=== PATIENT | male | born 1990 | race Caucasian/White ===

== ENCOUNTER 2020-10-13 16:51 | Emergency (ER) | payer MEDICARE, MEDICAID, SELFPAY ==
[2020-10-13 17:00] VITALS: BP 117/76; PULSE 106; RESP 18; TEMP 36.4; O2SAT 95; BMI 49.9
[2020-10-13 18:03] LABS: Amphetamine Screen Urine Not Detected (Not Detect); Barbiturates, Urine Not Detected (Not Detect); Benzodiazepines Screen Urine Not Detected (Not Detect); Cannabinoid Screen Urine Not Detected (Not Detect); Cocaine Screen Urine Not Detected (Not Detect); Fentanyl, urine Not Detected (Not Detect); Opiate Screen Urine Not Detected (Not Detect); Phencyclidine Screen Urine Not Detected (Not Detect)
[2020-10-13 18:11] LABS: MANUAL DIFF FLAG NO
[2020-10-13 18:12] LABS: COVID-19 Test Negative (Negative); IDNOW Serial# 9DD0AD1C
[2020-10-13 18:16] LABS: Basophils Percent Auto 0.1 % (0-2); Eosinophils Absolute Auto 0.1 X10*3/uL (0.0-0.4); Eosinophils Percent Auto 0.7 % (0-4); Hematocrit 42.6 % (42-52); Hemoglobin 14.7 g/dl (14.0-18.0); Imm Gran Abs Auto 0.04 X10*3/uL (0.00-0.03); Imm Gran Pct Auto 0.4 % (0.0-0.4); Lymphocytes Absolute Auto 1.7 X10*3/uL (1.2-4.9); Lymphocytes Percent Auto 18.7 % (20-40); Mean Corpuscular HGB Conc 34.5 g/dl (31.0-36.0); Mean Corpuscular Hemoglobin 30.3 pg (27.0-33.0); Mean Corpuscular Volume 87.8 fL (80-98); Mean Platelet Volume 10.8 fL (9.4-12.4); Monocytes Absolute Auto 0.7 X10*3/uL (0.1-1.2); Monocytes Percent Auto 8.3 % (2-11); Neutrophils Absolute Auto 6.4 X10*3/uL (2.0-8.3); Neutrophils Percent Auto 71.8 % (45-73); Platelet Count 181 X10*3/uL (160-400); Red Blood Count 4.85 X10*6/uL (4.60-5.80); Red Cell Distribution Width 12.3 % (11.0-16.0); White Blood Count 8.9 X10*3/uL (4.8-10.8)
[2020-10-13 18:41] LABS: Alanine Aminotransferase 95 U/L (0-40); Albumin Level 4.2 g/dL (3.5-5.0); Alkaline Phosphatase 85 U/L (39-117); Anion Gap 13 (12-20); Aspartate Amino Transferase 35 U/L (5-37); Bilirubin Direct < 0.2 mg/dL (0.0-0.5); Bilirubin Total 0.3 mg/dL (0.0-1.0); Blood Urea Nitrogen 16 mg/dL (9-16); Calcium 9.3 mg/dL (8.4-10.2); Carbon Dioxide 25 mmol/L (22-29); Chloride 107 mmol/L (96-108); Creatinine Clr Calc Pharmacy 136.7; Estimated Glomerular Filt Rate > 60; Glucose Random 93 mg/dL (60-115); Potassium 4.4 mmol/L (3.3-5.1); Sodium 141 mmol/L (135-145); Total Protein 7.3 g/dL (6.5-8.0)
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
[2020-10-13] MEDS: OXcarbazepine 150 MG TABLET PO (22:19)
[2020-10-13] MEDS: Divalproex Sodium ER 500 MG TAB.ER.24H 1000 MG PO (22:19)
[2020-10-13] MEDS: Omeprazole 40 MG CAPSULE.DR PO (22:20)
[2020-10-13] MEDS: NeoMYCIN/Polymyxin/HC Otic Sol BOTTLE 4 DROP EAR-LEFT (22:20)
[2020-10-13] MEDS: Amoxicillin/Potassium Clav 875 MG TABLET PO (22:20)
[2020-10-13] MEDS: HaloperidoL 5 MG TABLET 15 MG PO (22:20)
[2020-10-14] MEDS: Acetaminophen 325 MG TABLET 650 MG PO (01:46)
--- NOTE | 2020-10-14 06:31 | PC.NURSE ---
Patient slept through the night, no distress observed/reported, VSS, behavior appropriate, patient is on ABT treatment for his left ear infection, [facility] referral completed/awaiting evaluation AM, appetite good, will continue to monitor.
[2020-10-14 06:34] VITALS: BP 128/76; PULSE 88; RESP 16; TEMP 36.8; O2SAT 94
[2020-10-14] MEDS: Omeprazole 40 MG CAPSULE.DR PO (06:41)
[2020-10-14] MEDS: NeoMYCIN/Polymyxin/HC Otic Sol BOTTLE 4 DROP EAR-LEFT ×2 (06:41→13:33)
[2020-10-14] MEDS: Amoxicillin/Potassium Clav 875 MG TABLET PO (08:08)
[2020-10-14] MEDS: Levothyroxine Sodium 100 MCG TABLET PO (08:08)
[2020-10-14] MEDS: OXcarbazepine 150 MG TABLET PO (08:09)
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
--- NOTE | 2020-10-14 13:19 | PC.NURSE ---
pt has been calm, cooperative. HE states he is aware he will be returning to his [facility] and agrees to returning there. HE has had lunch and has been in common area with staff, behavior appropriate.
--- NOTE | 2020-10-14 13:21 | MHC.CARE ---
Call to patient's [facility] staffIzabela about patient's transportation home. They can arrange a ride 2:30-3:00
[2020-10-18 18:21] LABS: Haloperidol 2 ng/mL (5-15)
== END 2020-10-14 15:50 | disposition home or self-care (01) ==
PROVIDERS: Physician Assistant; Emergency Provider Emergency Medicine Emergency Medical Services
DX: R45.851 Suicidal ideations (principal); F98.9 Unspecified behavioral and emotional disorders with onset usually occurring in childhood and adolescence; Z20.822 Contact with and (suspected) exposure to COVID-19; R45.850 Homicidal ideations; F41.9 Anxiety disorder, unspecified; F71 Moderate intellectual disabilities; F31.9 Bipolar disorder, unspecified; F43.10 Post-traumatic stress disorder, unspecified; R00.0 Tachycardia, unspecified; Z79.899 Other long term (current) drug therapy
CPT/HCPCS: 36415; 80048; 80076; 80173; 80307; 83735; 85025; 87635; 99285

== ENCOUNTER 2020-10-16 18:48 | Inpatient (IN) | payer MEDICARE, MEDICAID, SELFPAY ==
--- NOTE | ~2020-10-16 | US_ITS ---
EXAMINATION: US ABDOMEN COMPLETE CLINICAL INFORMATION: Abdominal pain. COMPARISON: None TECHNIQUE: Real-time imaging of the abdominal viscera. FINDINGS: PANCREAS: Obscured by overlying bowel gas. ABDOMINAL AORTA: The proximal, mid, and distal segments are normal in caliber. INFERIOR VENA CAVA: Visualized portions are normal. LIVER: There is diffusely increased echogenicity present with difficulty in sound shadowing consistent with fatty infiltration. No focal mass or intrahepatic bile duct dilatation is seen. The liver is normal in size. The liver contour is normal. GALLBLADDER: Not visualized. No tenderness to palpation in the right upper quadrant. COMMON BILE DUCT: Not identified. RIGHT KIDNEY: Normal. No hydronephrosis. No renal calculi or focal parenchymal lesions. The kidney measures 11.8 cm in maximum dimension. LEFT KIDNEY: Normal. No hydronephrosis. No renal calculi or focal parenchymal lesions. The kidney measures 11.5 cm in maximum dimension. SPLEEN: Splenomegaly present. The spleen measures 13.7 cm in maximum dimension. FREE FLUID: None. US/US abdomen complete IMPRESSION: Limited study with findings consistent with fatty infiltration of the liver and splenomegaly. Pancreas obscured by overlying bowel gas and gallbladder not identified.
--- NOTE | ~2020-10-16 | XR_ITS ---
EXAMINATION: XR ABDOMEN KUB CLINICAL INDICATION: Pain. Constipation. COMPARISON: None TECHNIQUE: AP view of the abdomen. FINDINGS: There is stool throughout the colon suggestive of constipation. No dilated loops of bowel to suggest obstruction. No calcifications. There are mild degenerative changes of the lower thoracic and upper lumbar spine. XR/XR KUB IMPRESSION: Constipation.
--- NOTE | ~2020-10-16 | XR_ITS ---
EXAMINATION: XR CHEST CLINICAL INFORMATION: Congestion. COMPARISON: None TECHNIQUE: 2 views of the chest were obtained. FINDINGS: No significant abnormality is noted involving the heart, lungs, mediastinum, bony thorax or soft tissues. XR/XR chest 2V IMPRESSION: Unremarkable examination.
--- NOTE | ~2020-10-16 | XR_ITS ---
EXAMINATION: XR ANKLE, LEFT CLINICAL INFORMATION: Patient having pain. Reports he twisted his ankle. COMPARISON: None TECHNIQUE: AP, lateral, and mortise views of the left ankle. FINDINGS: No fracture. No dislocation. No widening of the ankle mortise. There is soft tissue swelling medial greater than lateral. XR/XR ankle LT 2V IMPRESSION: No acute osseous abnormality. Medial greater than lateral soft tissue swelling.
[2020-10-16 19:00] VITALS: BP 126/84; PULSE 100; O2SAT 98
[2020-10-16 19:23] VITALS: BP 152/98; PULSE 97; RESP 20; TEMP 36.2; O2SAT 97
[2020-10-16 19:28] VITALS: BP 152/98; PULSE 97; RESP 18; TEMP 36.2; O2SAT 97; BMI 63.2
[2020-10-16 21:44] LABS: Ethanol < 10 mg/dL
--- NOTE | 2020-10-16 22:41 | PC.NURSE ---
provider dr de la torre in seeing the pt at this time.
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
[2020-10-16 23:44] VITALS: BP 158/106; PULSE 87; RESP 18; TEMP 36.6; O2SAT 95
[2020-10-17 00:10] LABS: Amphetamine Screen Urine Not Detected (Not Detect); Barbiturates, Urine Not Detected (Not Detect); Benzodiazepines Screen Urine Not Detected (Not Detect); Cannabinoid Screen Urine Not Detected (Not Detect); Cocaine Screen Urine Not Detected (Not Detect); Fentanyl, urine Not Detected (Not Detect); Opiate Screen Urine Not Detected (Not Detect); Phencyclidine Screen Urine Not Detected (Not Detect)
--- NOTE | 2020-10-17 00:44 | PC.NURSE ---
BHN referral completed via smart-sheet, confirmed by KJ Petersen overnight pharmacy operations specialist, patient is in room watching TV calm and quiet, no distress observed/reported, will continue to monitor.
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
--- NOTE | 2020-10-17 06:12 | PC.NURSE ---
Patient slept through the night, no distress observed/reported, patient was out of room for bathroom use x 1 and back, med rec completed awaiting provider's approval, Antibiotic dose needs to be verified with senior living, called and message was left to group to call us and update on patient's abt dose. behavior appropriate, VSS, appetite good, hydrating adequate, BHN referral was completed/confirmed, awaiting BHN evaluation in AM, will continue to monitor.
[2020-10-17 06:52] LABS: IDNOW Serial# 9DD0AD1C
[2020-10-17 06:53] LABS: COVID-19 Test Negative (Negative)
--- NOTE | 2020-10-17 07:38 | PC.NURSE ---
pt speaking w tyron in pt room att, pt calm and cooperative throughout morning w this rn.
[2020-10-17] MEDS: NeoMYCIN/Polymyxin/HC Otic Sol BOTTLE 4 DROP EAR-LEFT ×2 (09:18→16:55)
[2020-10-17] MEDS: Amoxicillin/Potassium Clav 875 MG TABLET PO ×2 (09:18→20:40)
[2020-10-17] MEDS: Omeprazole 40 MG CAPSULE.DR PO ×2 (09:18→16:55)
[2020-10-17] MEDS: OXcarbazepine 150 MG TABLET PO ×2 (09:18→20:40)
[2020-10-17] MEDS: Levothyroxine Sodium 100 MCG TABLET PO (09:18)
[2020-10-17] MEDS: Acetaminophen 325 MG TABLET 975 MG PO (10:32)
--- NOTE | 2020-10-17 10:33 | PC.NURSE ---
Pt medicated with tylenol as charted for left ear pain.
[2020-10-17] MEDS: Ibuprofen 800 MG TABLET PO ×2 (11:46→16:56)
--- NOTE | 2020-10-17 11:48 | PC.NURSE ---
Pt medicated with motrin as charted for continued ear pain of 5/10. Effects pending.
--- NOTE | 2020-10-17 15:21 | PC.NURSE ---
Report recieved. Pt standing at the nurses station, quiet, calm, and cooperative. No complaints at this time. Continues to be a section 12 bed search
[2020-10-17 15:36] VITALS: BP 136/91; PULSE 92; RESP 18; TEMP 36; O2SAT 96
--- NOTE | 2020-10-17 17:10 | PC.NURSE ---
Pt medicated with motrin for 10/10 L ear pain, charted in mar
--- NOTE | 2020-10-17 20:19 | PC.NURSE ---
PT AMBULATING ABOUT POD WITH EVEN STEADY GAIT. RR EVEN UNLABORED, SKIN WPD, NAD, PT OFFERS NO ACUTE COMPLAINTS. EATING AND DRINKING WITHOUT DIFFICULTY. PT AWARE/AGREEABLE TO PLAN OF CARE.
[2020-10-17] MEDS: HaloperidoL 5 MG TABLET 15 MG PO (20:40)
[2020-10-17] MEDS: Divalproex Sodium ER 500 MG TAB.ER.24H 1000 MG PO (20:40)
[2020-10-18 00:21] VITALS: BP 141/83; PULSE 92; RESP 18; TEMP 36.4; O2SAT 96
--- NOTE | 2020-10-18 01:35 | PC.NURSE ---
pt is sleeping at this time . no sign of distress.
[2020-10-18] MEDS: Levothyroxine Sodium 100 MCG TABLET PO (06:52)
[2020-10-18] MEDS: Omeprazole 40 MG CAPSULE.DR PO ×2 (06:52→14:55)
[2020-10-18] MEDS: OXcarbazepine 150 MG TABLET PO ×2 (08:24→20:03)
[2020-10-18] MEDS: Amoxicillin/Potassium Clav 875 MG TABLET PO ×2 (08:24→20:03)
[2020-10-18] MEDS: NeoMYCIN/Polymyxin/HC Otic Sol BOTTLE 4 DROP EAR-LEFT ×2 (08:24→17:05)
--- NOTE | 2020-10-18 10:23 | PC.NURSE ---
BHN at bedside
[2020-10-18 10:26] VITALS: BP 137/91; PULSE 98; RESP 18; TEMP 37.2; O2SAT 98
[2020-10-18] MEDS: Ibuprofen 800 MG TABLET PO (14:56)
[2020-10-18] MEDS: LORazepam 1 MG TABLET 2 MG PO (15:12)
--- NOTE | 2020-10-18 15:29 | PC.NURSE ---
pt states increasing anxiety, DELPHINE Boone made aware and 1X po Ativan ordered and given
[2020-10-18 17:56] VITALS: BP 129/84; PULSE 101; RESP 18; TEMP 36.7; O2SAT 97
[2020-10-18] MEDS: Acetaminophen 325 MG TABLET 975 MG PO (18:20)
--- NOTE | 2020-10-18 19:25 | PC.NURSE ---
Pt aaox4, standing in pod outside of nurses' station. Pt denies pain/discomfort. At this time, pt does not appear to be responding to internal stimuli. Pt aware and agreeable to nighttime medications. Pt without complaints.
[2020-10-18] MEDS: HaloperidoL 5 MG TABLET 15 MG PO (20:03)
[2020-10-18] MEDS: Divalproex Sodium ER 500 MG TAB.ER.24H 1000 MG PO (20:03)
[2020-10-19 02:06] VITALS: BP 122/69; PULSE 97; RESP 17; TEMP 36.6; O2SAT 96
--- NOTE | 2020-10-19 06:13 | PC.NURSE ---
Patient slept through the night, no distress observed/reported, medication compliant, behavior appropriate, VSS, appetite good, elimination intact, disposition per [facility] is section 12 inpatient bed search, will continue to monitor.
[2020-10-19] MEDS: Levothyroxine Sodium 100 MCG TABLET PO (07:08)
[2020-10-19] MEDS: Omeprazole 40 MG CAPSULE.DR PO ×2 (07:08→16:08)
[2020-10-19 07:56] VITALS: BP 119/79; PULSE 100; RESP 18; TEMP 36.2; O2SAT 95
[2020-10-19] MEDS: OXcarbazepine 150 MG TABLET PO ×2 (08:04→20:27)
[2020-10-19] MEDS: NeoMYCIN/Polymyxin/HC Otic Sol BOTTLE 4 DROP EAR-LEFT ×3 (08:04→20:28)
[2020-10-19] MEDS: Amoxicillin/Potassium Clav 875 MG TABLET PO ×2 (08:04→20:27)
--- NOTE | 2020-10-19 11:11 | PC.NURSE ---
[facility] phone number is [phone] for questions.
[2020-10-19] MEDS: LORazepam 1 MG TABLET 2 MG PO ×2 (12:22→20:27)
[2020-10-19] MEDS: OLANZapine 5 MG TABLET PO (16:08)
[2020-10-19 18:45] VITALS: BP 135/85; PULSE 129; RESP 17; TEMP 36.3; O2SAT 96
[2020-10-19] MEDS: HaloperidoL 5 MG TABLET 15 MG PO (20:26)
[2020-10-19] MEDS: polyethylene glycoL 3350 17 GM POWD.PACK PO (20:26)
[2020-10-19] MEDS: Divalproex Sodium ER 500 MG TAB.ER.24H 1000 MG PO (20:26)
[2020-10-20] MEDS: Levothyroxine Sodium 100 MCG TABLET PO (06:20)
[2020-10-20] MEDS: Omeprazole 40 MG CAPSULE.DR PO ×2 (06:20→16:36)
[2020-10-20 06:35] VITALS: BP 112/67; PULSE 96; RESP 18; TEMP 36.9; O2SAT 95
--- NOTE | 2020-10-20 07:19 | PC.NURSE ---
patient appears in no distress at present patient remains asleep respirations are even and unlabored
[2020-10-20] MEDS: Amoxicillin/Potassium Clav 875 MG TABLET PO ×2 (10:02→20:38)
[2020-10-20] MEDS: NeoMYCIN/Polymyxin/HC Otic Sol BOTTLE 4 DROP EAR-LEFT ×3 (10:03→20:42)
[2020-10-20] MEDS: OXcarbazepine 150 MG TABLET PO ×2 (10:03→20:38)
[2020-10-20 16:50] VITALS: BP 136/52; PULSE 102; RESP 18; TEMP 36.2; O2SAT 95
--- NOTE | 2020-10-20 17:27 | PC.NURSE ---
pat called [facility] [employer] [employer] [facility] nurse and expressed frustration with not being placed, t/w spoke to nurse and reviewed client status. patient also asked who he could speak to about problems and i told him i would relay information to inside sales supervisor if he/she rounds.
[2020-10-20] MEDS: LORazepam 1 MG TABLET 2 MG PO (20:38)
[2020-10-20] MEDS: HaloperidoL 5 MG TABLET 15 MG PO (20:39)
[2020-10-20] MEDS: Divalproex Sodium ER 500 MG TAB.ER.24H 1000 MG PO (20:39)
--- NOTE | 2020-10-20 23:05 | PC.NURSE ---
Patient upset over being to long here in POD, explained the process, calmed down, took his all nighttime meds with his PRN Ativan 2 mg, VSS, will continue to monitor.
[2020-10-20 23:17] VITALS: BP 119/72; PULSE 112; RESP 17; TEMP 36.8; O2SAT 95
--- NOTE | 2020-10-21 05:52 | PC.NURSE ---
Patient in bed appears sleeping, no distress observed/reported, patient got fully reassessed by BHN during overnight, disposition is same, section 12 inpatient bed search, per report longterm doesn't want patient back and patient doesn't want to go back to longterm, care team involved for patient advocacy will reach out to DDS worker today to discuss patient's situation, patient compliant with his medication, behavior appropriate mostly but may trigger if patient has to stay longer in the ED POD, appetite good, elimination intact, will continue to monitor.
[2020-10-21] MEDS: Levothyroxine Sodium 100 MCG TABLET PO (06:46)
[2020-10-21] MEDS: Omeprazole 40 MG CAPSULE.DR PO ×2 (06:46→15:54)
--- NOTE | 2020-10-21 07:04 | PC.NURSE ---
patient awake and alert upon t/w's arrival client's awake, making bed, tv audibly playing patient attends to adl's appears in no distress
[2020-10-21] MEDS: NeoMYCIN/Polymyxin/HC Otic Sol BOTTLE 4 DROP EAR-LEFT ×3 (08:03→21:38)
[2020-10-21] MEDS: Amoxicillin/Potassium Clav 875 MG TABLET PO ×2 (08:03→20:28)
[2020-10-21] MEDS: OXcarbazepine 150 MG TABLET PO ×2 (08:03→20:29)
[2020-10-21 08:05] VITALS: BP 111/75; PULSE 99; TEMP 35.1; O2SAT 96
--- NOTE | 2020-10-21 13:30 | MHC.CARE ---
Lengthy call with Izabela (YANIV RN) [phone] regarding patient's disposition and plans for post discharge. She reiterated that they are fully committed to caring for patient after he leaving the hospital, worst case he could go to a local respite and best case a different jail and ideally return to [facility] where he was living previously--all of these are being worked on concurrently. Izabela knows patient well and has observations about his behavior and hopes to speak to providers wherever he goes about medication, she noted that he hears voices and becomes dysregulated around 5 pm, wonders if doses can be split.
--- NOTE | 2020-10-21 15:31 | PC.NURSE ---
Ear drops admin to left ear per MAR. Pt present within the milieu, needing occasional redirection from nurses station, educated there is private patient information at the nurses station.
[2020-10-21 18:30] VITALS: BP 140/85; PULSE 103; RESP 16; TEMP 36.5; O2SAT 97
--- NOTE | 2020-10-21 19:18 | PC.NURSE ---
PT arrives on the until at 18:30 via wheelchair from the ED after signing CV paperwork. PT is a 30 year old male with a diagnosis of bipolar disorder that attempted suicide by way of consuming edible berries. PT resides in a usp where this occurred. PT is calm and cooperative throughout the admission process. A&O x 4 PT is currently feeling safe on the unit and expresses desire to get better. PT is denying any SI/HI and AH/VH at this time but does state he occasionally does have AH that instruct him to hurt himself. PT oriented to unit.
[2020-10-21 19:23] LABS: Valproate 24.8 mcg/mL (50.0-100.0)
[2020-10-21] MEDS: Ibuprofen 800 MG TABLET PO (20:28)
[2020-10-21] MEDS: Divalproex Sodium ER 500 MG TAB.ER.24H 1000 MG PO (20:29)
[2020-10-21] MEDS: HaloperidoL 5 MG TABLET 15 MG PO (20:29)
[2020-10-22 06:00] VITALS: BP 106/60; PULSE 95; RESP 16; TEMP 35.8; O2SAT 94
[2020-10-22] MEDS: Omeprazole 40 MG CAPSULE.DR PO ×2 (06:27→17:45)
[2020-10-22] MEDS: Levothyroxine Sodium 100 MCG TABLET PO (06:27)
[2020-10-22 08:18] LABS: MANUAL DIFF FLAG NO
[2020-10-22 08:22] LABS: Eosinophils Absolute Auto 0.1 X10*3/uL (0.0-0.4); Eosinophils Percent Auto 1.2 % (0-4); Hematocrit 41.8 % (42-52); Hemoglobin 14.2 g/dl (14.0-18.0); Imm Gran Abs Auto 0.02 X10*3/uL (0.00-0.03); Imm Gran Pct Auto 0.4 % (0.0-0.4); Lymphocytes Absolute Auto 2.1 X10*3/uL (1.2-4.9); Lymphocytes Percent Auto 42.1 % (20-40); Mean Corpuscular Volume 88.4 fL (80-98); Mean Platelet Volume 10.7 fL (9.4-12.4); Monocytes Absolute Auto 0.4 X10*3/uL (0.1-1.2); Monocytes Percent Auto 8.1 % (2-11); Neutrophils Absolute Auto 2.4 X10*3/uL (2.0-8.3); Neutrophils Percent Auto 48.2 % (45-73); Platelet Count 165 X10*3/uL (160-400); Red Blood Count 4.73 X10*6/uL (4.60-5.80); Red Cell Distribution Width 12.6 % (11.0-16.0)
[2020-10-22 08:52] LABS: Estimated Average Glucose 94 mg/dL; Hemoglobin A1C 111.3782 umol/L; Hemoglobin A1c % 4.9 %
--- NOTE | 2020-10-22 09:00 | ECG_ITS ---
Test Reason : HALDOL USE/QTC PROLO Blood Pressure : / mmHG Vent. Rate : 097 BPM Atrial Rate : 097 BPM P-R Int : 160 ms QRS Dur : 092 ms QT Int : 344 ms P-R-T Axes : 010 -03 022 degrees QTc Int : 436 ms Normal sinus rhythm Minimal voltage criteria for LVH, may be normal variant Borderline ECG No previous ECGs available Referred By: Alyssa Carbajal Electronically Signed By:CODY COOPER
[2020-10-22] MEDS: Amoxicillin/Potassium Clav 875 MG TABLET PO (09:41)
[2020-10-22] MEDS: NeoMYCIN/Polymyxin/HC Otic Sol BOTTLE 4 DROP EAR-LEFT ×2 (09:41→20:33)
[2020-10-22] MEDS: OXcarbazepine 150 MG TABLET PO ×2 (09:41→20:32)
[2020-10-22 09:46] LABS: Free T4 (Free Thyroxine) 1.26 ng/dL (0.71-1.85); Thyroid Stimulating Hormone 2.61 uIU/mL (0.32-4.0)
[2020-10-22 09:47] LABS: Alanine Aminotransferase 128 U/L (0-40); Albumin Level 3.9 g/dL (3.5-5.0); Alkaline Phosphatase 79 U/L (39-117); Anion Gap 11 (12-20); Aspartate Amino Transferase 44 U/L (5-37); Bilirubin Total 0.3 mg/dL (0.0-1.0); Blood Urea Nitrogen 17 mg/dL (9-16); Calcium 8.9 mg/dL (8.4-10.2); Carbon Dioxide 29 mmol/L (22-29); Chloride 105 mmol/L (96-108); Cholesterol 129 mg/dL; Creatinine Clr Calc Pharmacy 204.6; Estimated Glomerular Filt Rate > 60; Glucose Fasting 91 mg/dL (60-99); HDL Cholesterol 38 mg/dL; LDL Cholesterol Calculated 64 mg/dl; Magnesium 2.1 mg/dL (1.6-2.6); Potassium 4.4 mmol/L (3.3-5.1); Sodium 141 mmol/L (135-145); Total Protein 6.5 g/dL (6.5-8.0); Triglycerides 138 mg/dL
[2020-10-22 09:57] LABS: Folate 14.3 ng/mL (> or = 4.0); Vitamin B12 411 pg/mL (200-900)
[2020-10-22 13:50] VITALS: BP 143/89; PULSE 111; TEMP 36; O2SAT 96
--- NOTE | 2020-10-22 17:03 | P.CNHOSGPS_ITS ---
History of Present Illness Data of Consult Service Date: 10/22/20 Requesting physician: Alyssa Carbajal Primary Care Provider: Unknown Physician HPI Reason for consult: Abdominal pain This is a 30-year-old male who denies any past medical history currently admitted to for psychiatric care. The hospitalists were asked to see him in consultation due to abdominal pain. Patient reports left-sided abdominal pain with no radiation. The onset of the pain was yesterday afternoon and has been constant. The pain reportedly worsens with eating meals. The pain does not change with position. Patient denies any recent trauma. He has never had this abdominal pain before. He denies any recent takeout food, recent travel. He denies any associated nausea or vomiting but does report 3 episodes of diarrhea in the past 3 days. Review of Systems Review of Systems: Yes all other systems are reviewed and are negative Constitutional: Constitutional: Denies chills and Denies fever(s) Cardiovascular: Cardiovascular: Denies chest pain Respiratory: Respiratory: Denies cough Gastrointestinal: Gastrointestinal: Denies constipation, Denies heartburn, Reports diarrhea, Denies nausea and Denies vomiting Genitourinary: Genitourinary: Denies oliguria, Denies dysuria, Denies urinary hesitancy, Denies urinary incontinence and Denies urinary urgency [facility] Medical History No known health problems Functional capacity: independent ambulation Family history: reviewed and not pertinent Social History Household Members: Other Housing: Other Do you presently have visiting nurse or other home services: No Patient Tobacco Use Status: Never used Tobacco e-Cigarette/Vaping Use: Never Used Use of substances other than those prescribed or required for medical reasons: No Currently Displaying Signs/Symptoms of Drug Intoxication Withdrawal: No Have you been hit, kicked, punched, or otherwise hurt by someone within the past year? If so, by whom?: No Do you feel safe in your current relationship?: No Is there a partner from a previous relationship who is making you feel unsafe now?: No Are you made to feel afraid or neglected: No Confucianism Healthcare Practices: Restorationism Advance Directives: No Advance Directives Information Provided: No Do you have thoughts of harming others: None Do you have a plan to hurt others: No Plan Recently lost weight without trying: No Nutrition Risks: No Nutritional Risk Poor oral hygiene: No service: No Sexual orientation: Straight/Heterosexual Meds Allergies Allergy/AdvReac Type Severity Reaction Status Date / Time Penicillins Allergy Hives Verified 10/13/20 17:15 fluoxetine [From Prozac] AdvReac Unknown Verified 10/13/20 17:15 Active Medications: Current Medications Generic Name Dose Route Start Last Admin Trade Name Freq PRN Reason Stop Dose Admin Acetaminophen 975 mg 10/17/20 10:28 10/18/20 18:20 Acetaminophen 325 Mg Tablet PO 975 mg Q6H PRN Administration pain Al Hydroxide/Mg Hydroxide 30 ml 10/21/20 17:40 Magnesium Hydrox/Alum Hydrox 30 Ml Oral.Susp PO Q6H PRN Heartburn/Nausea Amoxicillin/Clavulanate Potassium 875 mg 10/17/20 09:00 10/22/20 09:41 Amoxicillin/Potassium Clav 875 Mg Tablet PO 875 mg BID RYAN Administration Divalproex Sodium 1,000 mg 10/17/20 21:00 10/21/20 20:29 Divalproex Sodium Er 500 Mg Tab.Er.24h PO 1,000 mg BEDTIME RYAN Administration Haloperidol 15 mg 10/17/20 21:00 10/21/20 20:29 Haloperidol 5 Mg Tablet PO 15 mg BEDTIME RYAN Administration Haloperidol 5 mg 10/21/20 18:13 Haloperidol 5 Mg Tablet PO BID PRN psychotic agitation Ibuprofen 800 mg 10/17/20 11:17 10/21/20 20:28 Ibuprofen 800 Mg Tablet PO 800 mg Q6H PRN Administration pain Levothyroxine Sodium 100 mcg 10/17/20 09:00 10/22/20 06:27 Levothyroxine Sodium 100 Mcg Tablet PO 100 mcg DAILY@0600 RYAN Administration Lorazepam 2 mg 10/20/20 18:20 10/20/20 20:38 Lorazepam 1 Mg Tablet PO 2 mg DAILY PRN Administration anxiety Magnesium Hydroxide 30 ml 10/21/20 17:40 Milk Of Magnesia 30 Ml Oral.Susp PO DAILY PRN Constipation Neomycin/Polymyxin/Hydrocortisone 4 drop 10/19/20 09:00 10/22/20 09:41 Neomycin/Polymyxin/Hc Otic Marisabel Bottle EAR-LEFT 4 drop TID RYAN Administration Omeprazole 40 mg 10/17/20 09:00 10/22/20 06:27 Omeprazole 40 Mg Capsule. PO 40 mg BID@0630,1630 RYAN Administration Oxcarbazepine 150 mg 10/17/20 09:00 10/22/20 09:41 Oxcarbazepine 150 Mg Tablet PO 150 mg BID RYAN Administration Trazodone HCl 50 mg 10/21/20 17:40 Trazodone Hcl 50 Mg Tablet PO BEDTIME PRN Insomnia Home Medications Medication Instructions Recorded Confirmed Last Taken Type divalproex 500 mg tablet,extended 2 tab PO BEDTIME 10/13/20 10/17/20 10/15/20 History release 24 hr haloperidol 10 mg tablet 15 mg PO BEDTIME 10/13/20 10/17/20 10/15/20 History levothyroxine 100 mcg tablet 1 tab PO DAILY 10/13/20 10/17/20 10/15/20 History omeprazole 40 mg capsule,delayed 1 cap PO BID 10/13/20 10/17/20 10/15/20 History release oxcarbazepine 150 mg tablet 1 tab PO BID 10/13/20 10/17/20 10/16/20 History 1 Results Labs CBC and Chem 7: 10/22/20 08:08 10/22/20 08:08 Labs: Laboratory Results - last 24 hr 10/21/20 10/22/20 10/22/20 18:46 08:08 08:08 MCV 88.4 MCH 30.0 MCHC 34.0 RDW 12.6 Plt Count 165 MPV 10.7 Immature Gran % (Auto) 0.4 Neut % (Auto) 48.2 Lymph % (Auto) 42.1 H [place] % (Auto) 8.1 Eos % (Auto) 1.2 Baso % (Auto) 0.0 Lymph # (Auto) 2.1 [place] # (Auto) 0.4 Eos # (Auto) 0.1 Baso # (Auto) 0.0 Abs Immat Gran (auto) 0.02 Absolute Neuts (auto) 2.4 Absolute Nucleated RBC 0.000 Nucleated RBC % (auto) 0.0 Anion Gap 11 L Estim Creat Clear Calc 204.6 Estimated GFR > 60 Fasting Glucose 91 Estimat Average Glucose Hemoglobin A1c % Calcium 8.9 Magnesium 2.1 Total Bilirubin 0.3 AST 44 H ALT 128 H Alkaline Phosphatase 79 Total Protein 6.5 Albumin 3.9 Triglycerides 138 Cholesterol 129 LDL Cholesterol, Calc 64 HDL Cholesterol 38 Vitamin B12 Folate TSH 2.61 Free T4 1.26 Valproic Acid 24.8 L 10/22/20 10/22/20 08:08 08:08 MCV MCH MCHC RDW Plt Count MPV Immature Gran % (Auto) Neut % (Auto) Lymph % (Auto) [place] % (Auto) Eos % (Auto) Baso % (Auto) Lymph # (Auto) [place] # (Auto) Eos # (Auto) Baso # (Auto) Abs Immat Gran (auto) Absolute Neuts (auto) Absolute Nucleated RBC Nucleated RBC % (auto) Anion Gap Estim Creat Clear Calc Estimated GFR Fasting Glucose Estimat Average Glucose 94 Hemoglobin A1c % 4.9 Calcium Magnesium Total Bilirubin AST ALT Alkaline Phosphatase Total Protein Albumin Triglycerides Cholesterol LDL Cholesterol, Calc HDL Cholesterol Vitamin B12 411 Folate 14.3 TSH Free T4 Valproic Acid Imaging Radiologist's Impressions: Impressions Chest X-Ray 10/22/20 15:57 IMPRESSION: Unremarkable examination. Abdomen Ultrasound 10/22/20 16:10 IMPRESSION: Limited study with findings consistent with fatty infiltration of the liver and splenomegaly. Pancreas obscured by overlying bowel gas and gallbladder not identified. Assessment and Plan (1) Abdominal pain: Status: Acute This is a 30 year old male with no significant past medical history admitted to now with complaints of abdominal pain Abdominal pain Has had a few episodes of associated diarrhea Has been on Augmentin for ?ear infection since ?10/08 Afebrile, no leukocytosis. 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 Lovelace Physical Exam Vital Signs: Last Vital Signs Temp 96.8 F 10/22/20 13:50 Pulse 111 H 10/22/20 13:50 Resp 16 10/22/20 06:00 BP 143/89 H 10/22/20 13:50 Pulse Ox 96 10/22/20 13:50 Body Mass Index 63.2 Const General: comfortable, no acute distress, alert and awake Nutritional Appearance: obese Orientation/consciousness: patient oriented x3 HENMT Head: Yes normocephalic and Yes atraumatic Eyes Sclerae: sclerae normal Resp Effort & Inspection: normal respiratory effort and no respiratory distress Cardio Rate: regular rate Rhythm: regular rhythm GI Other: soft, non-distended, tender to palpation left side, no rebound Neuro General: patient oriented x3 Cranial nerves: Yes CN's II-XII intact bilaterally and Yes Bilaterally intact EOM present
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
[2020-10-22] MEDS: LORazepam 1 MG TABLET 2 MG PO (18:31)
[2020-10-22] MEDS: HaloperidoL 5 MG TABLET 15 MG PO (20:32)
[2020-10-22] MEDS: Divalproex Sodium ER 500 MG TAB.ER.24H 1000 MG PO (20:32)
[2020-10-23] MEDS: Levothyroxine Sodium 100 MCG TABLET PO (07:16)
[2020-10-23] MEDS: Omeprazole 40 MG CAPSULE.DR PO ×2 (07:17→15:58)
[2020-10-23] MEDS: OXcarbazepine 150 MG TABLET PO ×3 (09:40→20:27)
[2020-10-23] MEDS: NeoMYCIN/Polymyxin/HC Otic Sol BOTTLE 4 DROP EAR-LEFT ×3 (09:40→20:33)
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
[2020-10-23] MEDS: OXcarbazepine 300 MG TABLET PO (15:58)
[2020-10-23] MEDS: HaloperidoL 5 MG TABLET PO (15:58)
[2020-10-23 17:04] VITALS: BP 135/82; PULSE 122; RESP 18; TEMP 36.1; O2SAT 96
[2020-10-23] MEDS: LORazepam 1 MG TABLET 2 MG PO (17:14)
[2020-10-23] MEDS: Lurasidone HCl 20 MG TABLET PO (20:27)
[2020-10-23] MEDS: Divalproex Sodium ER 500 MG TAB.ER.24H 1000 MG PO (20:27)
[2020-10-23] MEDS: HaloperidoL 5 MG TABLET 15 MG PO (20:27)
[2020-10-24] MEDS: Levothyroxine Sodium 100 MCG TABLET PO (06:22)
[2020-10-24] MEDS: Omeprazole 40 MG CAPSULE.DR PO ×2 (06:22→17:11)
[2020-10-24 06:56] VITALS: BP 109/59; PULSE 93; TEMP 36.6; O2SAT 98
[2020-10-24] MEDS: OXcarbazepine 150 MG TABLET PO ×2 (09:19→20:07)
[2020-10-24] MEDS: NeoMYCIN/Polymyxin/HC Otic Sol BOTTLE 4 DROP EAR-LEFT ×3 (09:19→20:57)
[2020-10-24] MEDS: OXcarbazepine 300 MG TABLET PO (13:53)
[2020-10-24 17:54] VITALS: BP 126/85; PULSE 104; RESP 18; TEMP 36.3; O2SAT 95
[2020-10-24] MEDS: Lurasidone HCl 20 MG TABLET PO (20:06)
[2020-10-24] MEDS: Divalproex Sodium ER 500 MG TAB.ER.24H 1000 MG PO (20:06)
[2020-10-24] MEDS: HaloperidoL 5 MG TABLET 15 MG PO (20:07)
--- NOTE | 2020-10-24 21:10 | HO.PSYCHPN ---
Subjective Subjective Date of Service: 10/24/20 Reason For Visit: Bipolar Disorder, SI Subjective Notes: Conditional Voluntary Healthcare Proxy: No Guardianship: No Medical Problems Affecting Mental Status: No Interim History: Team reports pt has been flat, withdrawn. Today he is in groups, continuing to be an elopement risk, however, seems to use this as a way to engage team. Reports no med SE, reports sleep and appetite are intact. Appears depressed at times. Requesting assistance with his menu which team are helping him complete. Medication Compliance: Yes Side effects from medications: No Attending Groups: Yes Review of Systems Acute medical concerns: No Medical Review of Systems: unchanged Review of Systems Reports behavioral changes Psychiatric: Reports anxiety, Reports behavioral changes, Reports depression, Reports hopelessness, Reports anhedonia and Reports paranoia Mental Status Exam Mental Status Exam Patient Appearance: Disheveled Patient Orientation: Person, Place and Situation Level of Consciousness: Awake and Alert Patient Behavior: Appropriate, Talkative, Cooperative, Anxious, Fearful, Distractible and Good Eye Contact Mood Description: Constricted, Fearful and Anxious Affect Description: Constricted and Anxious Patient Cognition Impaired: Yes Ability to Follow Directions: Good Speech Pattern: Appropriate, Spontaneous Speech and Soft-Spoken Memory Description: Intact Hallucinations: Auditory Delusions: Paranoid Ideation Perceptual Disturbances: Depersonalization and Derealization Thought Process: Distracted and Rumination Thought Content: positive for [place], positive for Circumstantial, positive for Preoccupation, positive for Tangential, positive for Suicidal Ideation (denies) and positive for Homicidal Ideation (denies) Depressive Symptoms: Increased Anxiety, Increased Irritability, Loss of Int. in Activity, Feelings of Worthlessness, Hopelessness, Unhappiness, Loss of Energy and Difficulty Concentrating Judgement: Fair Diagnostics Vital Signs (24Hr): Vital Signs - 24 hr 10/24/20 06:56 10/24/20 17:54 Temperature 97.8 F 97.3 F Pulse Rate 93 104 H Respiratory Rate 18 Blood Pressure 109/59 L 126/85 Pulse Oximetry 98 95 Body Mass Index 63.2 Labs Results: 10/22/20 08:08 10/22/20 08:08 Imaging Radiology Impressions: ITS Impressions Chest X-Ray 10/22/20 15:57 IMPRESSION: Unremarkable examination. Abdomen Ultrasound 10/22/20 16:10 IMPRESSION: Limited study with findings consistent with fatty infiltration of the liver and splenomegaly. Pancreas obscured by overlying bowel gas and gallbladder not identified. Medications Medications Current Medications Generic Name Dose Route Start Last Admin Trade Name Freq PRN Reason Stop Dose Admin Acetaminophen 975 mg 10/17/20 10:28 10/18/20 18:20 Acetaminophen 325 Mg Tablet PO 975 mg Q6H PRN Administration pain Al Hydroxide/Mg Hydroxide 30 ml 10/21/20 17:40 Magnesium Hydrox/Alum Hydrox 30 Ml Oral.Susp PO Q6H PRN Heartburn/Nausea Divalproex Sodium 1,000 mg 10/17/20 21:00 10/24/20 20:06 Divalproex Sodium Er 500 Mg Tab.Er.24h PO 1,000 mg BEDTIME RYAN Administration Haloperidol 15 mg 10/17/20 21:00 10/24/20 20:07 Haloperidol 5 Mg Tablet PO 15 mg BEDTIME RYAN Administration Haloperidol 5 mg 10/21/20 18:13 10/23/20 15:58 Haloperidol 5 Mg Tablet PO 5 mg BID PRN Administration psychotic agitation Ibuprofen 800 mg 10/17/20 11:17 10/21/20 20:28 Ibuprofen 800 Mg Tablet PO 800 mg Q6H PRN Administration pain Levothyroxine Sodium 100 mcg 10/17/20 09:00 10/24/20 06:22 Levothyroxine Sodium 100 Mcg Tablet PO 100 mcg DAILY@0600 RYAN Administration Lorazepam 2 mg 10/20/20 18:20 10/23/20 17:14 Lorazepam 1 Mg Tablet PO 2 mg DAILY PRN Administration anxiety Lurasidone HCl 20 mg 10/23/20 21:00 10/24/20 20:06 Lurasidone Hcl 20 Mg Tablet PO 20 mg BEDTIME RYAN Administration Magnesium Hydroxide 30 ml 10/21/20 17:40 Milk Of Magnesia 30 Ml Oral.Susp PO DAILY PRN Constipation Neomycin/Polymyxin/Hydrocortisone 4 drop 10/19/20 09:00 10/24/20 20:57 Neomycin/Polymyxin/Hc Otic Marisabel Bottle EAR-LEFT 4 drop TID RYAN Administration Omeprazole 40 mg 10/17/20 09:00 10/24/20 17:11 Omeprazole 40 Mg Capsule. PO 40 mg BID@0630,1630 RYAN Administration Oxcarbazepine 150 mg 10/23/20 21:00 10/24/20 20:07 Oxcarbazepine 150 Mg Tablet PO 150 mg BID RYAN Administration Oxcarbazepine 300 mg 10/24/20 14:00 10/24/20 13:53 Oxcarbazepine 300 Mg Tablet PO 300 mg 1400 RYAN Administration Trazodone HCl 50 mg 10/21/20 17:40 Trazodone Hcl 50 Mg Tablet PO BEDTIME PRN Insomnia Allergies Allergies Allergy/AdvReac Type Severity Reaction Status Date / Time Penicillins Allergy Hives Verified 10/13/20 17:15 fluoxetine [From Prozac] AdvReac Unknown Verified 10/13/20 17:15 Assessment & Plan Assessment & Plan (1) Abdominal pain: Status: Acute Code(s): R10.9 - Unspecified abdominal pain Assessment and Plan: Resolved Hospitalist consultation much appreciated. (2) Bipolar disorder: Status: Acute Code(s): F31.9 - Bipolar disorder, unspecified Assessment and Plan: Continue Trileptal to 150 mg bid, 300 mg at 1400. Latuda 20 mg HS (3) Moderate intellectual disability: Status: Acute Code(s): F71 - Moderate intellectual disabilities (4) PTSD (post-traumatic stress disorder): Status: Acute Code(s): F43.10 - Post-traumatic stress disorder, unspecified Assessment and Plan: Continue above plan of care Greater than 50% of the session was spent on counseling and/or coordination of care Patient educated on: therapeutic strategies Informed Consent: further education needed Reason for contiued inpatient stay Substantial Risk for: harm to self and rapid decompensation
[2020-10-25 06:00] VITALS: BP 118/57; PULSE 98; RESP 18; TEMP 35.8; O2SAT 95
[2020-10-25] MEDS: Omeprazole 40 MG CAPSULE.DR PO ×2 (06:27→16:47)
[2020-10-25] MEDS: Levothyroxine Sodium 100 MCG TABLET PO (06:27)
[2020-10-25] MEDS: OXcarbazepine 150 MG TABLET PO ×2 (09:20→20:15)
[2020-10-25] MEDS: NeoMYCIN/Polymyxin/HC Otic Sol BOTTLE 4 DROP EAR-LEFT ×3 (09:20→20:14)
[2020-10-25] MEDS: LORazepam 1 MG TABLET 2 MG PO (13:31)
[2020-10-25] MEDS: HaloperidoL 5 MG TABLET PO ×2 (13:31→19:17)
[2020-10-25] MEDS: Acetaminophen 325 MG TABLET 975 MG PO (13:46)
[2020-10-25] MEDS: OXcarbazepine 300 MG TABLET PO (14:38)
[2020-10-25 17:00] VITALS: BP 141/70; PULSE 125; RESP 20; TEMP 36.1; O2SAT 94
--- NOTE | 2020-10-25 18:22 | P.PNPSI_ITS ---
Subjective Subjective Date of Service: 10/25/20 Reason For Visit: Bipolar Disorder, SI Interim History: Pt reported feeling improved, attending some groups, social with peers, but appeared to be triggered by another peer with resulting difficulty with not staying away from the door. PRN's given. Medication Compliance: Yes Side effects from medications: Yes (mild EPS, Benztropine prn ordered) Attending Groups: Yes Review of Systems Acute medical concerns: No Medical Review of Systems: unchanged Review of Systems Reports behavioral changes Psychiatric: Reports anxiety, Reports behavioral changes, Reports depression, Reports hopelessness, Reports anhedonia and Reports paranoia Mental Status Exam Mental Status Exam Patient Appearance: Disheveled Patient Orientation: Person, Place and Situation Level of Consciousness: Awake and Alert Patient Behavior: Appropriate, Talkative, Cooperative, Anxious, Fearful, Distractible and Good Eye Contact Mood Description: Constricted, Fearful and Anxious Affect Description: Constricted and Anxious Patient Cognition Impaired: Yes Ability to Follow Directions: Good Speech Pattern: Appropriate, Spontaneous Speech and Soft-Spoken Memory Description: Intact Hallucinations: Auditory Delusions: Paranoid Ideation Perceptual Disturbances: Depersonalization and Derealization Thought Process: Distracted and Rumination Thought Content: positive for [place], positive for [place], positive for Preoccupation, positive for [place], positive for Suicidal Ideation (denies) and positive for Homicidal Ideation (denies) Depressive Symptoms: Increased Anxiety, Increased Irritability, Loss of Int. in Activity, Feelings of Worthlessness, Hopelessness, Unhappiness, Loss of Energy and Difficulty Concentrating Judgement: Fair Diagnostics Vital Signs (24Hr): Vital Signs - 24 hr 10/25/20 06:00 10/25/20 17:00 Temperature 96.4 F L 96.9 F Pulse Rate 98 125 H Respiratory Rate 18 20 Blood Pressure 118/57 L 141/70 H Pulse Oximetry 95 94 Body Mass Index 63.2 Labs Results: 10/22/20 08:08 10/22/20 08:08 Imaging Radiology Impressions: ITS Impressions Chest X-Ray 10/22/20 15:57 IMPRESSION: Unremarkable examination. Abdomen Ultrasound 10/22/20 16:10 IMPRESSION: Limited study with findings consistent with fatty infiltration of the liver and splenomegaly. Pancreas obscured by overlying bowel gas and gallbladder not identified. Medications Medications Current Medications Generic Name Dose Route Start Last Admin Trade Name Freq PRN Reason Stop Dose Admin Acetaminophen 975 mg 10/17/20 10:28 10/25/20 13:46 Acetaminophen 325 Mg Tablet PO 975 mg Q6H PRN Administration pain Al Hydroxide/Mg Hydroxide 30 ml 10/21/20 17:40 Magnesium Hydrox/Alum Hydrox 30 Ml Oral.Susp PO Q6H PRN Heartburn/Nausea Divalproex Sodium 1,000 mg 10/17/20 21:00 10/24/20 20:06 Divalproex Sodium Er 500 Mg Tab.Er.24h PO 1,000 mg BEDTIME RYAN Administration Haloperidol 15 mg 10/17/20 21:00 10/24/20 20:07 Haloperidol 5 Mg Tablet PO 15 mg BEDTIME RYAN Administration Haloperidol 5 mg 10/21/20 18:13 10/25/20 13:31 Haloperidol 5 Mg Tablet PO 5 mg BID PRN Administration psychotic agitation Ibuprofen 800 mg 10/17/20 11:17 10/21/20 20:28 Ibuprofen 800 Mg Tablet PO 800 mg Q6H PRN Administration pain Levothyroxine Sodium 100 mcg 10/17/20 09:00 10/25/20 06:27 Levothyroxine Sodium 100 Mcg Tablet PO 100 mcg DAILY@0600 RYAN Administration Lorazepam 2 mg 10/20/20 18:20 10/25/20 13:31 Lorazepam 1 Mg Tablet PO 2 mg DAILY PRN Administration anxiety Lurasidone HCl 20 mg 10/23/20 21:00 10/24/20 20:06 Lurasidone Hcl 20 Mg Tablet PO 20 mg BEDTIME RYAN Administration Magnesium Hydroxide 30 ml 10/21/20 17:40 Milk Of Magnesia 30 Ml Oral.Susp PO DAILY PRN Constipation Neomycin/Polymyxin/Hydrocortisone 4 drop 10/19/20 09:00 10/25/20 14:38 Neomycin/Polymyxin/Hc Otic Marisabel Bottle EAR-LEFT 4 drop TID RYAN Administration Omeprazole 40 mg 10/17/20 09:00 10/25/20 16:47 Omeprazole 40 Mg Capsule.Dr PO 40 mg BID@0630,1630 RYAN Administration Oxcarbazepine 150 mg 10/23/20 21:00 10/25/20 09:20 Oxcarbazepine 150 Mg Tablet PO 150 mg BID RYAN Administration Oxcarbazepine 300 mg 10/24/20 14:00 10/25/20 14:38 Oxcarbazepine 300 Mg Tablet PO 300 mg 1400 RYAN Administration Trazodone HCl 50 mg 10/21/20 17:40 Trazodone Hcl 50 Mg Tablet PO BEDTIME PRN Insomnia Allergies Allergies Allergy/AdvReac Type Severity Reaction Status Date / Time Penicillins Allergy Hives Verified 10/13/20 17:15 fluoxetine [From Prozac] AdvReac Unknown Verified 10/13/20 17:15 Assessment & Plan Assessment & Plan (1) Abdominal pain: Status: Acute Code(s): R10.9 - Unspecified abdominal pain Assessment and Plan: Resolved Hospitalist consultation much appreciated. (2) Bipolar disorder: Status: Acute Code(s): F31.9 - Bipolar disorder, unspecified Assessment and Plan: Continue Trileptal to 150 mg bid, 300 mg at 1400. Latuda 20 mg HS Benztropine 1 mg bid prn (3) Moderate intellectual disability: Status: Acute Code(s): F71 - Moderate intellectual disabilities (4) PTSD (post-traumatic stress disorder): Status: Acute Code(s): F43.10 - Post-traumatic stress disorder, unspecified Assessment and Plan: Continue above plan of care Greater than 50% of the session was spent on counseling and/or coordination of care Patient educated on: medication risk/benefits and therapeutic strategies Informed Consent: does not understand and further education needed Reason for contiued inpatient stay Substantial Risk for: harm to self, inability to function and rapid decompensation
[2020-10-25] MEDS: Benztropine Mesylate 1 MG TABLET PO (19:17)
[2020-10-25] MEDS: HaloperidoL 5 MG TABLET 15 MG PO (20:14)
[2020-10-25] MEDS: Lurasidone HCl 20 MG TABLET PO (20:15)
[2020-10-25] MEDS: Divalproex Sodium ER 500 MG TAB.ER.24H 1000 MG PO (20:15)
[2020-10-25 21:32] LABS: CMV DNA PCR Qn Source Whole Blood; CMV DNA Qn PCR <2.30 log IU/mL (<2.30); CMV DNA Qn Real Time PCR <200 IU/mL (<200); EBV DNA PCR Not Detected (Not Detected); EBV Source Serum
[2020-10-26 06:00] VITALS: BP 115/66; PULSE 102; RESP 16; TEMP 35.8; O2SAT 82
[2020-10-26] MEDS: Omeprazole 40 MG CAPSULE.DR PO ×2 (06:32→16:04)
[2020-10-26] MEDS: Levothyroxine Sodium 100 MCG TABLET PO (06:32)
[2020-10-26] MEDS: NeoMYCIN/Polymyxin/HC Otic Sol BOTTLE 4 DROP EAR-LEFT ×3 (08:51→20:42)
[2020-10-26] MEDS: OXcarbazepine 150 MG TABLET PO ×2 (08:51→20:35)
[2020-10-26] MEDS: LORazepam 1 MG TABLET 2 MG PO (09:17)
[2020-10-26] MEDS: OXcarbazepine 300 MG TABLET PO (13:46)
[2020-10-26] MEDS: HaloperidoL 5 MG TABLET PO ×2 (13:46→19:22)
[2020-10-26] MEDS: Benztropine Mesylate 1 MG TABLET PO (13:46)
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
--- NOTE | 2020-10-26 14:23 | P.PNPSI_ITS ---
Subjective Subjective Date of Service: 10/26/20 Reason For Visit: Bipolar Disorder, SI Subjective Notes: Conditional Voluntary Healthcare Proxy: No Guardianship: No Medical Problems Affecting Mental Status: No Interim History: Pt met with nutrition services per his request to discuss weight loss and healthy eating habits. Denies perceptual alterations, denies SI, HI. Discussed his goal which is to live at [facility] in [place]. Pt incontinent of stool with community exposure today-team reports he becomes embarrassed and then behaviors increase-anger, irritability, attempting to leave the unit. Pt attempting to work in milieu, in groups, with peers Medication Compliance: Yes Side effects from medications: No Attending Groups: Intermittent Review of Systems Acute medical concerns: No Medical Review of Systems: unchanged Review of Systems Reports behavioral changes Psychiatric: Reports anxiety, Reports behavioral changes, Reports irritability, Reports mood swings, Reports paranoia and Reports suicidal ideation (intermittent, situationally focused) Mental Status Exam Mental Status Exam Patient Appearance: Disheveled Patient Orientation: Person, Place and Situation Level of Consciousness: Awake and Alert Patient Behavior: Appropriate, Guarded, Talkative, Cooperative, Suspicious, Restless, Anxious, Distractible, Good Eye Contact and Impulsive Mood Description: Depressed and Labile Affect Description: Labile Patient Cognition Impaired: Yes Ability to Follow Directions: Good Speech Pattern: Spontaneous Speech Memory Description: Episodic Impaired Hallucinations: Auditory Delusions: Paranoid Ideation Perceptual Disturbances: Depersonalization and Derealization Thought Process: Distracted Thought Content: positive for [place] and positive for Suicidal Ideation (episodic) Depressive Symptoms: Diff. Making Decisions, Increased Irritability, Loss of Int. in Activity, Unhappiness and Thoughts of /Suicide (intermittent) Abnormal Motor Activity Signs and Symptoms: Restlessness Judgement: Fair Diagnostics Vital Signs (24Hr): Vital Signs - 24 hr 10/25/20 17:00 10/26/20 06:00 Temperature 96.9 F 96.4 F L Pulse Rate 125 H 102 H Respiratory Rate 20 16 Blood Pressure 141/70 H 115/66 Pulse Oximetry 94 82 L Body Mass Index 63.2 Labs Results: 10/22/20 08:08 10/22/20 08:08 Labs: Laboratory Results - last 48 hr 10/22/20 10/22/20 19:10 19:10 CMV Specimen Source Whole Blood CMV Qnt PCR IU/mL <200 CMV Qnt PCR log IU/mL <2.30 EBV Source Serum EBV DNA (PCR) Not Detected Imaging Radiology Impressions: ITS Impressions Chest X-Ray 10/22/20 15:57 IMPRESSION: Unremarkable examination. Abdomen Ultrasound 10/22/20 16:10 IMPRESSION: Limited study with findings consistent with fatty infiltration of the liver and splenomegaly. Pancreas obscured by overlying bowel gas and gallbladder not identified. Ankle X-Ray 10/25/20 19:44 IMPRESSION: No acute osseous abnormality. Medial greater than lateral soft tissue swelling. Medications Medications Current Medications Generic Name Dose Route Start Last Admin Trade Name Freq PRN Reason Stop Dose Admin Acetaminophen 975 mg 10/17/20 10:28 10/25/20 13:46 Acetaminophen 325 Mg Tablet PO 975 mg Q6H PRN Administration pain Al Hydroxide/Mg Hydroxide 30 ml 10/21/20 17:40 Magnesium Hydrox/Alum Hydrox 30 Ml Oral.Susp PO Q6H PRN Heartburn/Nausea Benztropine Mesylate 1 mg 10/25/20 18:22 10/26/20 13:46 Benztropine Mesylate 1 Mg Tablet PO 1 mg BID PRN Administration EPS Divalproex Sodium 1,000 mg 10/17/20 21:00 10/25/20 20:15 Divalproex Sodium Er 500 Mg Tab.Er.24h PO 1,000 mg BEDTIME RYAN Administration Haloperidol 15 mg 10/17/20 21:00 10/25/20 20:14 Haloperidol 5 Mg Tablet PO 15 mg BEDTIME RYAN Administration Haloperidol 5 mg 10/21/20 18:13 10/26/20 13:46 Haloperidol 5 Mg Tablet PO 5 mg BID PRN Administration psychotic agitation Ibuprofen 800 mg 10/17/20 11:17 10/21/20 20:28 Ibuprofen 800 Mg Tablet PO 800 mg Q6H PRN Administration pain Levothyroxine Sodium 100 mcg 10/17/20 09:00 10/26/20 06:32 Levothyroxine Sodium 100 Mcg Tablet PO 100 mcg DAILY@0600 RYAN Administration Lorazepam 2 mg 10/20/20 18:20 10/26/20 09:17 Lorazepam 1 Mg Tablet PO 2 mg DAILY PRN Administration anxiety Lurasidone HCl 20 mg 10/23/20 21:00 10/25/20 20:15 Lurasidone Hcl 20 Mg Tablet PO 20 mg BEDTIME RYAN Administration Magnesium Hydroxide 30 ml 10/21/20 17:40 Milk Of Magnesia 30 Ml Oral.Susp PO DAILY PRN Constipation Neomycin/Polymyxin/Hydrocortisone 4 drop 10/19/20 09:00 10/26/20 14:14 Neomycin/Polymyxin/Hc Otic Marisabel Bottle EAR-LEFT 4 drop TID RYAN Administration Omeprazole 40 mg 10/17/20 09:00 10/26/20 06:32 Omeprazole 40 Mg Capsule.Dr PO 40 mg BID@0630,1630 RYAN Administration Oxcarbazepine 150 mg 10/23/20 21:00 10/26/20 08:51 Oxcarbazepine 150 Mg Tablet PO 150 mg BID RYAN Administration Oxcarbazepine 300 mg 10/24/20 14:00 10/26/20 13:46 Oxcarbazepine 300 Mg Tablet PO 300 mg 1400 RYAN Administration Trazodone HCl 50 mg 10/21/20 17:40 Trazodone Hcl 50 Mg Tablet PO BEDTIME PRN Insomnia Allergies Allergies Allergy/AdvReac Type Severity Reaction Status Date / Time Penicillins Allergy Hives Verified 10/13/20 17:15 fluoxetine [From Prozac] AdvReac Unknown Verified 10/13/20 17:15 Assessment & Plan Assessment & Plan (1) Abdominal pain: Status: Acute Code(s): R10.9 - Unspecified abdominal pain Assessment and Plan: Resolved Hospitalist consultation much appreciated. (2) Bipolar disorder: Status: Acute Code(s): F31.9 - Bipolar disorder, unspecified Assessment and Plan: Continue Trileptal to 150 mg bid, 300 mg at 1400. Continue Latuda 20 mg HS Benztropine 1 mg bid prn (3) Moderate intellectual disability: Status: Acute Code(s): F71 - Moderate intellectual disabilities (4) PTSD (post-traumatic stress disorder): Status: Acute Code(s): F43.10 - Post-traumatic stress disorder, unspecified Assessment and Plan: Continue above plan of care Greater than 50% of the session was spent on counseling and/or coordination of care Patient educated on: therapeutic strategies Informed Consent: further education needed Reason for contiued inpatient stay Substantial Risk for: harm to self, harm to others and rapid decompensation
[2020-10-26 18:00] VITALS: BP 140/83; PULSE 121; RESP 18; TEMP 36.4; O2SAT 95
--- NOTE | 2020-10-26 19:59 | P.EN_ITS ---
Event Note Date of Service: 10/26/20 Event Note: Per staff anesthesiologist, Tanmay had an episode of intentional encopresis this evening. He was also grabbing things from the [employer] executive secretary social welfare's desk and standing near the doorway in attempt to elope from the unit. Security was called due to risky behaviors. Tanmay was amenable to taking PRN haldol 5 mg and to taking a shower, after this he was more cooperative with interventions and was able to go to bed without incident. I ordered ativan 1 mg (as RN said 2 mg was too sedating for him) but Tanmay did not need further PRN medication due to positive response from haldol and de-escalating techniques by staff.
[2020-10-26] MEDS: HaloperidoL 5 MG TABLET 15 MG PO (20:35)
[2020-10-26] MEDS: LORazepam 1 MG TABLET PO (20:35)
[2020-10-26] MEDS: Divalproex Sodium ER 500 MG TAB.ER.24H 1000 MG PO (20:35)
[2020-10-26] MEDS: Lurasidone HCl 20 MG TABLET PO (20:35)
[2020-10-27] MEDS: Levothyroxine Sodium 100 MCG TABLET PO (06:25)
[2020-10-27] MEDS: Omeprazole 40 MG CAPSULE.DR PO ×2 (06:25→16:39)
[2020-10-27] MEDS: OXcarbazepine 150 MG TABLET PO ×2 (08:54→19:08)
[2020-10-27] MEDS: NeoMYCIN/Polymyxin/HC Otic Sol BOTTLE 4 DROP EAR-LEFT ×2 (08:55→14:03)
[2020-10-27] MEDS: OXcarbazepine 300 MG TABLET PO (14:00)
[2020-10-27] MEDS: HaloperidoL 5 MG TABLET PO (15:07)
[2020-10-27] MEDS: Benztropine Mesylate 1 MG TABLET PO (15:08)
--- NOTE | 2020-10-27 16:47 | HO.PSYCHPN ---
Subjective Subjective Date of Service: 10/27/20 Reason For Visit: Bipolar Disorder, SI Subjective Notes: Conditional Voluntary Healthcare Proxy: Yes Guardianship: No Medical Problems Affecting Mental Status: No Interim History: Tanmay reports he slept late. He discussed behavioral dyscontrol episode on 10/26. Reviewed that he needed security, that he wanted to run away and he felt triggered but was unable to identify a specific precipitant. Reports auditory perceptual alterations-voices of his mom, uncle and grandmother telling him he is doing OK and to behave myself . Review of medications and some strategies for behavioral mgt of symptoms. Medication Compliance: Yes Side effects from medications: No Attending Groups: Intermittent Review of Systems Acute medical concerns: No Medical Review of Systems: unchanged Review of Systems Reports behavioral changes Psychiatric: Reports anxiety, Reports behavioral changes, Reports depression, Reports irritability, Reports anhedonia, Reports paranoia and Reports suicidal ideation (intermittent) Mental Status Exam Mental Status Exam Patient Appearance: Disheveled Patient Orientation: Person, Place and Situation Level of Consciousness: Alert Patient Behavior: Talkative, Cooperative and Good Eye Contact Mood Description: Withdrawn, Labile and Flat Affect Description: Flat Patient Cognition Impaired: Yes Ability to Follow Directions: Good Speech Pattern: Spontaneous Speech and Long Pauses Memory Description: Remote Impaired Hallucinations: Auditory and Visual Delusions: Paranoid Ideation Perceptual Disturbances: Depersonalization Thought Process: Distracted Thought Content: positive for [place], positive for [place] and positive for Suicidal Ideation (intermittent) Depressive Symptoms: Increased Anxiety and Thoughts of /Suicide (intermittent) Judgement: Fair Diagnostics Vital Signs (24Hr): Vital Signs - 24 hr 10/26/20 18:00 Temperature 97.6 F Pulse Rate 121 H Respiratory Rate 18 Blood Pressure 140/83 H Pulse Oximetry 95 Body Mass Index 63.2 Labs Results: 10/22/20 08:08 10/22/20 08:08 Labs: Laboratory Results - last 48 hr 10/22/20 10/22/20 19:10 19:10 CMV Specimen Source Whole Blood CMV Qnt PCR IU/mL <200 CMV Qnt PCR log IU/mL <2.30 EBV Source Serum EBV DNA (PCR) Not Detected Imaging Radiology Impressions: ITS Impressions Chest X-Ray 10/22/20 15:57 IMPRESSION: Unremarkable examination. Abdomen Ultrasound 10/22/20 16:10 IMPRESSION: Limited study with findings consistent with fatty infiltration of the liver and splenomegaly. Pancreas obscured by overlying bowel gas and gallbladder not identified. Ankle X-Ray 10/25/20 19:44 IMPRESSION: No acute osseous abnormality. Medial greater than lateral soft tissue swelling. Medications Medications Current Medications Generic Name Dose Route Start Last Admin Trade Name Freq PRN Reason Stop Dose Admin Acetaminophen 975 mg 10/17/20 10:28 10/25/20 13:46 Acetaminophen 325 Mg Tablet PO 975 mg Q6H PRN Administration pain Al Hydroxide/Mg Hydroxide 30 ml 10/21/20 17:40 Magnesium Hydrox/Alum Hydrox 30 Ml Oral.Susp PO Q6H PRN Heartburn/Nausea Benztropine Mesylate 1 mg 10/25/20 18:22 10/27/20 15:08 Benztropine Mesylate 1 Mg Tablet PO 1 mg BID PRN Administration EPS Divalproex Sodium 1,250 mg 10/27/20 21:00 Divalproex Sodium Er 250 Mg Tab.Er.24h PO BEDTIME RYAN Haloperidol 15 mg 10/17/20 21:00 10/26/20 20:35 Haloperidol 5 Mg Tablet PO 15 mg BEDTIME RYAN Administration Haloperidol 5 mg 10/21/20 18:13 10/27/20 15:07 Haloperidol 5 Mg Tablet PO 5 mg BID PRN Administration psychotic agitation Ibuprofen 800 mg 10/17/20 11:17 10/21/20 20:28 Ibuprofen 800 Mg Tablet PO 800 mg Q6H PRN Administration pain Levothyroxine Sodium 100 mcg 10/17/20 09:00 10/27/20 06:25 Levothyroxine Sodium 100 Mcg Tablet PO 100 mcg DAILY@0600 RYAN Administration Lorazepam 2 mg 10/20/20 18:20 10/26/20 09:17 Lorazepam 1 Mg Tablet PO 2 mg DAILY PRN Administration anxiety Lurasidone HCl 40 mg 10/27/20 21:00 Lurasidone Hcl 40 Mg Tablet PO BEDTIME RYAN Magnesium Hydroxide 30 ml 10/21/20 17:40 Milk Of Magnesia 30 Ml Oral.Susp PO DAILY PRN Constipation Neomycin/Polymyxin/Hydrocortisone 4 drop 10/19/20 09:00 10/27/20 14:03 Neomycin/Polymyxin/Hc Otic Marisabel Bottle EAR-LEFT 4 drop TID RYAN Administration Omeprazole 40 mg 10/17/20 09:00 10/27/20 16:39 Omeprazole 40 Mg Capsule.Dr PO 40 mg BID@0630,9020 RYAN Administration Oxcarbazepine 150 mg 10/23/20 21:00 10/27/20 08:54 Oxcarbazepine 150 Mg Tablet PO 150 mg BID RYAN Administration Oxcarbazepine 300 mg 10/24/20 14:00 10/27/20 14:00 Oxcarbazepine 300 Mg Tablet PO 300 mg 1400 RYAN Administration Trazodone HCl 50 mg 10/21/20 17:40 Trazodone Hcl 50 Mg Tablet PO BEDTIME PRN Insomnia Allergies Allergies Allergy/AdvReac Type Severity Reaction Status Date / Time Penicillins Allergy Hives Verified 10/13/20 17:15 fluoxetine [From Prozac] AdvReac Unknown Verified 10/13/20 17:15 Assessment & Plan Assessment & Plan (1) Abdominal pain: Status: Acute Code(s): R10.9 - Unspecified abdominal pain Assessment and Plan: Resolved Hospitalist consultation much appreciated. (2) Bipolar disorder: Status: Acute Code(s): F31.9 - Bipolar disorder, unspecified Assessment and Plan: Pt experiencing increase anxiety, triggers, lability, behaviors. Trileptal 150 mg bid, 300 mg at 1400 attempting to address this, but ineffective thus far. As a result, Increase Depakote to 1250 mg HS. If effective will taper Trileptal, although pt reports Trileptal has had antidepressant effect. Continue Latuda 20 mg HS Continue Benztropine 1 mg bid prn (3) Moderate intellectual disability: Status: Acute Code(s): F71 - Moderate intellectual disabilities (4) PTSD (post-traumatic stress disorder): Status: Acute Code(s): F43.10 - Post-traumatic stress disorder, unspecified Assessment and Plan: Continue above plan of care Greater than 50% of the session was spent on counseling and/or coordination of care Reason for contiued inpatient stay Substantial Risk for: harm to self, harm to others, inability to function and rapid decompensation
[2020-10-27] MEDS: LORazepam 1 MG TABLET 2 MG PO (18:36)
[2020-10-27] MEDS: HaloperidoL 5 MG TABLET 15 MG PO (18:49)
[2020-10-27] MEDS: Divalproex Sodium ER 250 MG TAB.ER.24H 1250 MG PO (19:07)
[2020-10-27] MEDS: Lurasidone HCl 40 MG TABLET PO (19:08)
[2020-10-28] MEDS: Levothyroxine Sodium 100 MCG TABLET PO (08:51)
[2020-10-28] MEDS: Omeprazole 40 MG CAPSULE.DR PO ×2 (08:51→16:50)
[2020-10-28] MEDS: OXcarbazepine 150 MG TABLET PO ×2 (08:51→20:04)
[2020-10-28] MEDS: NeoMYCIN/Polymyxin/HC Otic Sol BOTTLE 4 DROP EAR-LEFT ×2 (08:52→16:03)
[2020-10-28] MEDS: OXcarbazepine 300 MG TABLET PO (14:40)
--- NOTE | 2020-10-28 15:12 | HO.PSYCHPN ---
Subjective Subjective Date of Service: 10/28/20 Reason For Visit: Bipolar Disorder, SI Subjective Notes: Conditional Voluntary Interim History: Tanmay seem with bright affect, pleasant on approach. Pt reports he is doing well and feels safe in the unit. When asked about SI, he reports passive thoughts but unable to articulate what is affecting his mood, especially as is incongruent with affect. He reports sleeping and eating well. He denies hearing voices. He is mostly in nurses station. Medication Compliance: Yes Side effects from medications: No Attending Groups: Intermittent Review of Systems Acute medical concerns: No Review of Systems Review of Systems All other systems are reviewed and are negative Constitutional: Reports as per HPI and Reports no additional constitutional complaints Eyes: Reports as per HPI and Reports no additional eye complaints Reports system reviewed and no additional complaints, except as documented Cardiovascular: Reports as per HPI and Reports no additional cardiovascular complaints Respiratory: Reports as per HPI and Reports no additional respiratory complaints Gastrointestinal: Reports as per HPI and Reports no additional gastrointestinal complaints Genitourinary: Reports no additional female genitourinary complaints Musculoskeletal: Reports no additional musculoskeletal complaints Skin/Breast: Reports system reviewed and no additional complaints, except as docu Psychiatric: Reports no additional psychiatric complaints Endocrine: Reports no additional endocrine complaints Hematologic/Lymphatic: Reports no additional hematologic/lymphatic complaints Allergic/Immunologic: Reports no additional allergic/immunologic complaints Reports system reviewed and no additional complaints, except as documented and Reports Abnormal speech present Yes all other systems are reviewed and are negative Constitutional: Reports no additional constitutional complaints, Denies chills and Denies fever(s) Eyes: Reports no additional eye complaints Reports Normal hearing present Cardiovascular: Reports no additional cardiovascular complaints and Denies chest pain Respiratory: Reports no additional respiratory complaints, Reports chest congestion and Reports cough Gastrointestinal: Reports no additional gastrointestinal complaints, Reports abdominal pain, Denies constipation, Denies heartburn, Reports diarrhea, Denies nausea and Denies vomiting Genitourinary: Reports no additional male genitourinary complaints, Denies oliguria, Denies dysuria, Denies urinary hesitancy, Denies urinary incontinence and Denies urinary urgency Musculoskeletal: Reports no additional musculoskeletal complaints Reports system reviewed and no additional complaints, except as documented, Reports Normal hearing present and Reports behavioral changes Psychiatric: Reports anxiety, Reports behavioral changes, Reports depression, Reports difficulty concentrating, Reports auditory hallucinations, Reports hopelessness, Reports irritability, Reports anhedonia, Reports mood swings, Reports panic attacks, Reports paranoia, Reports homicidal ideation and Reports suicidal ideation (intermittent) Mental Status Exam Mental Status Exam Narrative: Appearance: MO, casually groomed, fair hygiene in NAD Behavior:cooperative psychomotor:no agitation or retardation noted Speech:mumbles a times, delayed response, soft tone, spontaneous Thought process:single word responses Thought content:no overt psychosis, concrete, feeling safe in unit Mood: depressed Affect: not congruent as affect appears much brighter than reported mood SI:passive, no plan or intent HI:none VH/AH:denies- does not appear internally preoccupied Delusions:no delusions Insight/judgment:poor x 2. Memory/cog: alert, oriented x 3. underlying intellectual disability. Diagnostics Vital Signs (24Hr): Vital Signs - 24 hr 10/28/20 18:00 Temperature 97.5 F Pulse Rate 116 H Respiratory Rate 18 Blood Pressure 136/94 H Pulse Oximetry 95 Body Mass Index 54.5 Labs Results: 10/22/20 08:08 10/22/20 08:08 Imaging Radiology Impressions: ITS Impressions Chest X-Ray 10/22/20 15:57 IMPRESSION: Unremarkable examination. Abdomen Ultrasound 10/22/20 16:10 IMPRESSION: Limited study with findings consistent with fatty infiltration of the liver and splenomegaly. Pancreas obscured by overlying bowel gas and gallbladder not identified. Ankle X-Ray 10/25/20 19:44 IMPRESSION: No acute osseous abnormality. Medial greater than lateral soft tissue swelling. Medications Medications Current Medications Generic Name Dose Route Start Last Admin Trade Name Freq PRN Reason Stop Dose Admin Acetaminophen 975 mg 10/17/20 10:28 10/29/20 13:37 Acetaminophen 325 Mg Tablet PO 975 mg Q6H PRN Administration pain Al Hydroxide/Mg Hydroxide 30 ml 10/21/20 17:40 Magnesium Hydrox/Alum Hydrox 30 Ml Oral.Susp PO Q6H PRN Heartburn/Nausea Benztropine Mesylate 1 mg 10/25/20 18:22 10/27/20 15:08 Benztropine Mesylate 1 Mg Tablet PO 1 mg BID PRN Administration EPS Divalproex Sodium 1,250 mg 10/27/20 21:00 10/28/20 20:04 Divalproex Sodium Er 250 Mg Tab.Er.24h PO 1,250 mg BEDTIME RYAN Administration Haloperidol 5 mg 10/21/20 18:13 10/28/20 15:51 Haloperidol 5 Mg Tablet PO 5 mg BID PRN Administration psychotic agitation Haloperidol 10 mg 10/29/20 21:00 Haloperidol 5 Mg Tablet PO BEDTIME RYAN Ibuprofen 800 mg 10/17/20 11:17 10/21/20 20:28 Ibuprofen 800 Mg Tablet PO 800 mg Q6H PRN Administration pain Levothyroxine Sodium 100 mcg 10/17/20 09:00 10/29/20 09:02 Levothyroxine Sodium 100 Mcg Tablet PO 100 mcg DAILY@0600 RYAN Administration Lorazepam 2 mg 10/20/20 18:20 10/28/20 16:50 Lorazepam 1 Mg Tablet PO 2 mg DAILY PRN Administration anxiety Lurasidone HCl 60 mg 10/29/20 21:00 Lurasidone Hcl 20 Mg Tablet PO BEDTIME RYAN Magnesium Hydroxide 30 ml 10/21/20 17:40 Milk Of Magnesia 30 Ml Oral.Susp PO DAILY PRN Constipation Neomycin/Polymyxin/Hydrocortisone 4 drop 10/28/20 16:30 10/29/20 11:19 Neomycin/Polymyxin/Hc Otic Marisabel Bottle EAR-RIGHT 11/01/20 23:59 4 drop TID RYAN Administration Omeprazole 40 mg 10/17/20 09:00 10/29/20 09:02 Omeprazole 40 Mg Capsule.Dr PO 40 mg BID@0630,1630 RYAN Administration Oxcarbazepine 150 mg 10/23/20 21:00 10/29/20 09:02 Oxcarbazepine 150 Mg Tablet PO 150 mg BID RYAN Administration Oxcarbazepine 300 mg 10/24/20 14:00 10/29/20 13:39 Oxcarbazepine 300 Mg Tablet PO 300 mg 1400 RYAN Administration Trazodone HCl 50 mg 10/21/20 17:40 Trazodone Hcl 50 Mg Tablet PO BEDTIME PRN Insomnia Vitamin D 25 mcg 10/30/20 09:00 Cholecalciferol (Vitamin D3) 25 Mcg Tablet PO DAILY [facility] Allergies Allergies Allergy/AdvReac Type Severity Reaction Status Date / Time Penicillins Allergy Hives Verified 10/13/20 17:15 fluoxetine [From Prozac] AdvReac Unknown Verified 10/13/20 17:15 Assessment & Plan Assessment & Plan (1) Abdominal pain: Status: Acute Code(s): R10.9 - Unspecified abdominal pain Assessment and Plan: Resolved Hospitalist consultation much appreciated. (2) Bipolar disorder: Status: Acute Code(s): F31.9 - Bipolar disorder, unspecified Assessment and Plan: PLAN: continue per primary treatment team, Pt experiencing increase anxiety, triggers, lability, behaviors. Trileptal 150 mg bid, 300 mg at 1400 attempting to address this, but ineffective thus far. As a result, Increase Depakote to 1250 mg HS. If effective will taper Trileptal, although pt reports Trileptal has had antidepressant effect. Continue Latuda 20 mg HS Continue Benztropine 1 mg bid prn (3) Moderate intellectual disability: Status: Acute Code(s): F71 - Moderate intellectual disabilities (4) PTSD (post-traumatic stress disorder): Status: Acute Code(s): F43.10 - Post-traumatic stress disorder, unspecified Assessment and Plan: Continue above plan of care Greater than 50% of the session was spent on counseling and/or coordination of care Reason for contiued inpatient stay Substantial Risk for: inability to function
[2020-10-28] MEDS: HaloperidoL 5 MG TABLET PO (15:51)
--- NOTE | 2020-10-28 16:20 | PM.EVENT ---
Event Note Date of Service: 10/28/20 Event Note: Patient reports that left ear pain has stopped after antibiotic ear drops; however he says his right ear is now hurting. 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 hospitalist for start antibiotic ear drops for 5 days in right ear
[2020-10-28] MEDS: LORazepam 1 MG TABLET 2 MG PO (16:50)
[2020-10-28] MEDS: NeoMYCIN/Polymyxin/HC Otic Sol BOTTLE 4 DROP EAR-RIGHT ×2 (17:00→20:35)
[2020-10-28] MEDS: Acetaminophen 325 MG TABLET 975 MG PO (17:15)
[2020-10-28 18:00] VITALS: BP 136/94; PULSE 116; RESP 18; TEMP 36.4; O2SAT 95
[2020-10-28] MEDS: HaloperidoL 5 MG TABLET 15 MG PO (20:04)
[2020-10-28] MEDS: Lurasidone HCl 40 MG TABLET PO (20:04)
[2020-10-28] MEDS: Divalproex Sodium ER 250 MG TAB.ER.24H 1250 MG PO (20:04)
[2020-10-29 07:00] VITALS: BMI 54.5
[2020-10-29] MEDS: Omeprazole 40 MG CAPSULE.DR PO ×2 (09:02→15:44)
[2020-10-29] MEDS: Levothyroxine Sodium 100 MCG TABLET PO (09:02)
[2020-10-29] MEDS: OXcarbazepine 150 MG TABLET PO ×2 (09:02→20:27)
[2020-10-29] MEDS: NeoMYCIN/Polymyxin/HC Otic Sol BOTTLE 4 DROP EAR-RIGHT ×3 (11:19→20:34)
[2020-10-29] MEDS: Acetaminophen 325 MG TABLET 975 MG PO (13:37)
[2020-10-29] MEDS: OXcarbazepine 300 MG TABLET PO (13:39)
[2020-10-29] MEDS: LORazepam 1 MG TABLET 2 MG PO (15:43)
[2020-10-29 16:15] LABS: Glucose, Whole Blood 167 mg/dL (60-115)
--- NOTE | 2020-10-29 16:34 | HO.PSYCHPN ---
Subjective Subjective Date of Service: 10/29/20 Reason For Visit: Bipolar Disorder, SI Subjective Notes: Conditional Voluntary Healthcare Proxy: Yes Guardianship: No Medical Problems Affecting Mental Status: No Interim History: Discussed with pt possible precipitants to late afternoon evening agitation and behavioral dyscontrol. Discussed increasing strucutre during that time-and possibilities to resolving these issues so he may return to his residence Will order POC 4pm, labs for 11/03 and EKG, Vitamin D replacement and decrease in Haldol while titration of Latuda as OP MD had suggested. Pt denies SI, medical issues, anxious to meet with program nurse on 10/30 and plan a return to [facility] [place]. Medication Compliance: Yes Side effects from medications: No Attending Groups: Yes Review of Systems Acute medical concerns: No Pt denies today. Review of Systems Reports behavioral changes Psychiatric: Reports anxiety, Reports behavioral changes, Reports auditory hallucinations and Reports suicidal ideation (denies) Mental Status Exam Mental Status Exam Patient Appearance: Disheveled Patient Orientation: Person, Place and Situation Level of Consciousness: Alert Patient Behavior: Talkative and Good Eye Contact Mood Description: Anxious Affect Description: Anxious Patient Cognition Impaired: Yes Ability to Follow Directions: Good Speech Pattern: Spontaneous Speech and Soft-Spoken Memory Description: Episodic Impaired Hallucinations: Auditory Delusions: Not Present Thought Process: Goal Oriented Thought Content: positive for Circumstantial Depressive Symptoms: Increased Anxiety Judgement: Fair Diagnostics Vital Signs (24Hr): Vital Signs - 24 hr 10/28/20 18:00 Temperature 97.5 F Pulse Rate 116 H Respiratory Rate 18 Blood Pressure 136/94 H Pulse Oximetry 95 Body Mass Index 54.5 Labs Results: 10/22/20 08:08 10/22/20 08:08 Labs: Laboratory Results - last 48 hr 10/29/20 16:09 POC Glucose 167 H Imaging Radiology Impressions: ITS Impressions Chest X-Ray 10/22/20 15:57 IMPRESSION: Unremarkable examination. Abdomen Ultrasound 10/22/20 16:10 IMPRESSION: Limited study with findings consistent with fatty infiltration of the liver and splenomegaly. Pancreas obscured by overlying bowel gas and gallbladder not identified. Ankle X-Ray 10/25/20 19:44 IMPRESSION: No acute osseous abnormality. Medial greater than lateral soft tissue swelling. Medications Medications Current Medications Generic Name Dose Route Start Last Admin Trade Name Freq PRN Reason Stop Dose Admin Acetaminophen 975 mg 10/17/20 10:28 10/29/20 13:37 Acetaminophen 325 Mg Tablet PO 975 mg Q6H PRN Administration pain Al Hydroxide/Mg Hydroxide 30 ml 10/21/20 17:40 Magnesium Hydrox/Alum Hydrox 30 Ml Oral.Susp PO Q6H PRN Heartburn/Nausea Benztropine Mesylate 1 mg 10/25/20 18:22 10/27/20 15:08 Benztropine Mesylate 1 Mg Tablet PO 1 mg BID PRN Administration EPS Divalproex Sodium 1,250 mg 10/27/20 21:00 10/28/20 20:04 Divalproex Sodium Er 250 Mg Tab.Er.24h PO 1,250 mg BEDTIME RYAN Administration Haloperidol 5 mg 10/21/20 18:13 10/28/20 15:51 Haloperidol 5 Mg Tablet PO 5 mg BID PRN Administration psychotic agitation Haloperidol 10 mg 10/29/20 21:00 Haloperidol 5 Mg Tablet PO BEDTIME RYAN Ibuprofen 800 mg 10/17/20 11:17 10/21/20 20:28 Ibuprofen 800 Mg Tablet PO 800 mg Q6H PRN Administration pain Levothyroxine Sodium 100 mcg 10/17/20 09:00 10/29/20 09:02 Levothyroxine Sodium 100 Mcg Tablet PO 100 mcg DAILY@0600 RYAN Administration Lorazepam 2 mg 10/20/20 18:20 10/29/20 15:43 Lorazepam 1 Mg Tablet PO 2 mg DAILY PRN Administration anxiety Lurasidone HCl 60 mg 10/29/20 21:00 Lurasidone Hcl 20 Mg Tablet PO BEDTIME RYAN Magnesium Hydroxide 30 ml 10/21/20 17:40 Milk Of Magnesia 30 Ml Oral.Susp PO DAILY PRN Constipation Neomycin/Polymyxin/Hydrocortisone 4 drop 10/28/20 16:30 10/29/20 11:19 Neomycin/Polymyxin/Hc Otic Marisabel Bottle EAR-RIGHT 11/01/20 23:59 4 drop TID RYAN Administration Omeprazole 40 mg 10/17/20 09:00 10/29/20 15:44 Omeprazole 40 Mg Capsule.Dr PO 40 mg BID@0630,1630 RYAN Administration Oxcarbazepine 150 mg 10/23/20 21:00 10/29/20 09:02 Oxcarbazepine 150 Mg Tablet PO 150 mg BID RYAN Administration Oxcarbazepine 300 mg 10/24/20 14:00 10/29/20 13:39 Oxcarbazepine 300 Mg Tablet PO 300 mg 1400 RYAN Administration Trazodone HCl 50 mg 10/21/20 17:40 Trazodone Hcl 50 Mg Tablet PO BEDTIME PRN Insomnia Vitamin D 25 mcg 10/30/20 09:00 Cholecalciferol (Vitamin D3) 25 Mcg Tablet PO DAILY RYAN Allergies Allergies Allergy/AdvReac Type Severity Reaction Status Date / Time Penicillins Allergy Hives Verified 10/13/20 17:15 fluoxetine [From Prozac] AdvReac Unknown Verified 10/13/20 17:15 Assessment & Plan Assessment & Plan (1) Abdominal pain: Status: Acute Code(s): R10.9 - Unspecified abdominal pain (2) Bipolar disorder: Status: Acute Code(s): F31.9 - Bipolar disorder, unspecified (3) Moderate intellectual disability: Status: Acute Code(s): F71 - Moderate intellectual disabilities (4) PTSD (post-traumatic stress disorder): Status: Acute Code(s): F43.10 - Post-traumatic stress disorder, unspecified Assessment and Plan: Continue above plan of care Greater than 50% of the session was spent on counseling and/or coordination of care Patient educated on: therapeutic strategies Informed Consent: understands and further education needed Reason for contiued inpatient stay Substantial Risk for: harm to self, harm to others, inability to function and rapid decompensation
[2020-10-29 18:35] VITALS: BP 165/83; PULSE 60; TEMP 36.6
[2020-10-29] MEDS: Divalproex Sodium ER 250 MG TAB.ER.24H 1250 MG PO (20:27)
[2020-10-29] MEDS: Lurasidone HCl 20 MG TABLET 60 MG PO (20:27)
[2020-10-29] MEDS: HaloperidoL 5 MG TABLET PO (20:27)
[2020-10-30] MEDS: Levothyroxine Sodium 100 MCG TABLET PO (08:59)
[2020-10-30] MEDS: Omeprazole 40 MG CAPSULE.DR PO ×2 (08:59→15:43)
[2020-10-30] MEDS: Cholecalciferol (Vitamin D3) 25 MCG TABLET PO (08:59)
[2020-10-30] MEDS: NeoMYCIN/Polymyxin/HC Otic Sol BOTTLE 4 DROP EAR-RIGHT ×3 (09:03→20:50)
[2020-10-30 09:32] VITALS: BP 140/63; RESP 116
[2020-10-30] MEDS: OXcarbazepine 300 MG TABLET PO (14:12)
[2020-10-30] MEDS: LORazepam 1 MG TABLET 2 MG PO (15:43)
[2020-10-30 16:21] VITALS: BP 126/82; PULSE 106; TEMP 36.6
[2020-10-30 16:39] LABS: Glucose, Whole Blood 144 mg/dL (60-115)
[2020-10-30 17:32] LABS: Parvovirus B19 IgG <0.9; Parvovirus B19 IgM <0.9
--- NOTE | 2020-10-30 18:53 | P.PNPSI_ITS ---
Subjective Subjective Date of Service: 10/31/20 Reason For Visit: Bipolar Disorder, SI Interim History: Patient seen and discussed with team. I evaluated the patient this evening and upon interview he reports his mood is good. Says his current goals for the weekend are to remain stable while waiting for a treatment plan meeting on Monday, says he will be going to a new senior care upon discharge. Reports his sleep and appetite are good. No behavioral dysregulation this evening. Says his medications are good, does not have questions or concerns. He does report he was crying a couple minutes ago, however this was not observed, he is unable to identify a precipitating factor. When asked about stressors he says some of the patients bother me here and that this is probably why I was crying. When asked to elaborate, he stated he does not want to mention names but that someone told him to go take a shower in a mean way this morning. He is able to identify alleviating factors and coping skills, including distraction. Has been utilizing PRN meds appropriately. In the milieu, patient is safe and appropriate in behavior, often lingers around nurses station but no elopement behaviors this evening. Denies SI/SIB/HI upon inquiry. Denies irritability or assaultive ideation. Says he feels safe. Mental Status Exam Mental Status Exam Narrative: Patient Appearance:?Disheveled Patient Orientation:?Person, Place and Situation Level of Consciousness:?Alert Patient Behavior:?Talkative and Good Eye Contact Mood Description:?Anxious Affect Description:?Anxious Patient Cognition Impaired:?Yes Ability to Follow Directions:?Good Speech Pattern:?Spontaneous Speech and Soft-Spoken Memory Description:?Episodic Impaired Hallucinations:?Auditory Delusions:?Not Present Thought Process:?Goal Oriented Thought Content:?positive for Circumstantial Depressive Symptoms:?Increased Anxiety Judgement:?Fair Diagnostics Vital Signs (24Hr): Vital Signs - 24 hr 10/30/20 09:32 10/30/20 16:21 Temperature 97.8 F Pulse Rate 106 H Respiratory Rate 116 H Blood Pressure 140/63 H 126/82 Body Mass Index 54.5 Labs Results: 10/22/20 08:08 10/22/20 08:08 Labs: Laboratory Results - last 48 hr 10/22/20 10/29/20 10/30/20 19:10 16:09 16:30 POC Glucose 167 H 144 H Parvovirus B19 IgG Ab <0.9 Parvovirus B19 IgM Ab <0.9 Imaging Radiology Impressions: ITS Impressions Chest X-Ray 10/22/20 15:57 IMPRESSION: Unremarkable examination. Abdomen Ultrasound 10/22/20 16:10 IMPRESSION: Limited study with findings consistent with fatty infiltration of the liver and splenomegaly. Pancreas obscured by overlying bowel gas and gallbladder not identified. Ankle X-Ray 10/25/20 19:44 IMPRESSION: No acute osseous abnormality. Medial greater than lateral soft tissue swelling. Medications Medications Current Medications Generic Name Dose Route Start Last Admin Trade Name Freq PRN Reason Stop Dose Admin Acetaminophen 975 mg 10/17/20 10:28 10/29/20 13:37 Acetaminophen 325 Mg Tablet PO 975 mg Q6H PRN Administration pain Al Hydroxide/Mg Hydroxide 30 ml 10/21/20 17:40 Magnesium Hydrox/Alum Hydrox 30 Ml Oral.Susp PO Q6H PRN Heartburn/Nausea Benztropine Mesylate 1 mg 10/25/20 18:22 10/27/20 15:08 Benztropine Mesylate 1 Mg Tablet PO 1 mg BID PRN Administration EPS Divalproex Sodium 1,250 mg 10/27/20 21:00 10/29/20 20:27 Divalproex Sodium Er 250 Mg Tab.Er.24h PO 1,250 mg BEDTIME RYAN Administration Haloperidol 5 mg 10/21/20 18:13 10/28/20 15:51 Haloperidol 5 Mg Tablet PO 5 mg BID PRN Administration psychotic agitation Haloperidol 5 mg 10/29/20 21:00 10/29/20 20:27 Haloperidol 5 Mg Tablet PO 5 mg BEDTIME RYAN Administration Ibuprofen 800 mg 10/17/20 11:17 10/21/20 20:28 Ibuprofen 800 Mg Tablet PO 800 mg Q6H PRN Administration pain Levothyroxine Sodium 100 mcg 10/17/20 09:00 10/30/20 08:59 Levothyroxine Sodium 100 Mcg Tablet PO 100 mcg DAILY@0600 RYAN Administration Lorazepam 2 mg 10/20/20 18:20 10/30/20 15:43 Lorazepam 1 Mg Tablet PO 2 mg DAILY PRN Administration anxiety Lurasidone HCl 60 mg 10/29/20 21:00 10/29/20 20:27 Lurasidone Hcl 20 Mg Tablet PO 60 mg BEDTIME RYAN Administration Magnesium Hydroxide 30 ml 10/21/20 17:40 Milk Of Magnesia 30 Ml Oral.Susp PO DAILY PRN Constipation Neomycin/Polymyxin/Hydrocortisone 4 drop 10/28/20 16:30 10/30/20 15:51 Neomycin/Polymyxin/Hc Otic Marisabel Bottle EAR-RIGHT 11/01/20 23:59 4 drop TID RYAN Administration Omeprazole 40 mg 10/17/20 09:00 10/30/20 15:43 Omeprazole 40 Mg Capsule.Dr PO 40 mg BID@0630,1630 RYAN Administration Oxcarbazepine 300 mg 10/24/20 14:00 10/30/20 14:12 Oxcarbazepine 300 Mg Tablet PO 300 mg 1400 RYAN Administration Trazodone HCl 50 mg 10/21/20 17:40 Trazodone Hcl 50 Mg Tablet PO BEDTIME PRN Insomnia Vitamin D 25 mcg 10/30/20 09:00 10/30/20 08:59 Cholecalciferol (Vitamin D3) 25 Mcg Tablet PO 25 mcg DAILY RYAN Administration Allergies Allergies Allergy/AdvReac Type Severity Reaction Status Date / Time Penicillins Allergy Hives Verified 10/13/20 17:15 fluoxetine [From Prozac] AdvReac Unknown Verified 10/13/20 17:15 Assessment & Plan Assessment & Plan (1) Abdominal pain: Status: Acute Code(s): R10.9 - Unspecified abdominal pain (2) Bipolar disorder: Status: Acute Code(s): F31.9 - Bipolar disorder, unspecified (3) Moderate intellectual disability: Status: Acute Code(s): F71 - Moderate intellectual disabilities (4) PTSD (post-traumatic stress disorder): Status: Acute Code(s): F43.10 - Post-traumatic stress disorder, unspecified Assessment and Plan: Plan: 1. Will continue current med regimen, has care team meeting pending Monday to discuss discharge planning and senior care placement. 2. Monitor response to medications. Monitor for safety in the milieu. Discharge on stabilization. Patient seen. Chart reviewed. Discussed with team. Greater than 50% of the session was spent on counseling and/or coordination of care Reason for contiued inpatient stay Substantial Risk for: harm to self, rapid decompensation and med/psych decompensation
[2020-10-30] MEDS: Divalproex Sodium ER 250 MG TAB.ER.24H 1250 MG PO (20:03)
[2020-10-30] MEDS: HaloperidoL 5 MG TABLET PO (20:03)
[2020-10-30] MEDS: Lurasidone HCl 20 MG TABLET 60 MG PO (20:03)
[2020-10-31] MEDS: Levothyroxine Sodium 100 MCG TABLET PO (06:42)
[2020-10-31] MEDS: Omeprazole 40 MG CAPSULE.DR PO ×2 (06:42→16:06)
[2020-10-31] MEDS: Cholecalciferol (Vitamin D3) 25 MCG TABLET PO (08:41)
[2020-10-31] MEDS: NeoMYCIN/Polymyxin/HC Otic Sol BOTTLE 4 DROP EAR-RIGHT ×2 (08:42→14:03)
--- NOTE | 2020-10-31 13:13 | P.PNPSI_ITS ---
Subjective Subjective Date of Service: 10/31/20 Reason For Visit: Bipolar Disorder, SI Interim History: was frustrated yesterday around not having a provider meeting. Today he presents is concrete. Reports things are going okay. Feels that he is being well treated. Reports feeling less frustrated. Looking forward to meeting on Monday. Reports that he wants to live in the [facility] close to his father and not return to his fpc in [place]. He is also aware that this may not be an immediate plan. Medication Compliance: Yes Side effects from medications: No Review of Systems Acute medical concerns: No Review of Systems Review of Systems Noncontributory Mental Status Exam Mental Status Exam Narrative: seen in room. Obese. poor self-care. Very concrete. Restricted affect. No evidence of SI or HI. No psychosis noted. Pleasant. Insight and judgment consistent with cognition Diagnostics Vital Signs (24Hr): Vital Signs - 24 hr 10/30/20 16:21 Temperature 97.8 F Pulse Rate 106 H Blood Pressure 126/82 Body Mass Index 54.5 Labs Results: 10/22/20 08:08 10/22/20 08:08 Labs: Laboratory Results - last 48 hr 10/22/20 10/29/20 10/30/20 19:10 16:09 16:30 POC Glucose 167 H 144 H Parvovirus B19 IgG Ab <0.9 Parvovirus B19 IgM Ab <0.9 Imaging Radiology Impressions: ITS Impressions Chest X-Ray 10/22/20 15:57 IMPRESSION: Unremarkable examination. Abdomen Ultrasound 10/22/20 16:10 IMPRESSION: Limited study with findings consistent with fatty infiltration of the liver and splenomegaly. Pancreas obscured by overlying bowel gas and gallbladder not identified. Ankle X-Ray 10/25/20 19:44 IMPRESSION: No acute osseous abnormality. Medial greater than lateral soft tissue swelling. Medications Medications Current Medications Generic Name Dose Route Start Last Admin Trade Name Freq PRN Reason Stop Dose Admin Acetaminophen 975 mg 10/17/20 10:28 10/29/20 13:37 Acetaminophen 325 Mg Tablet PO 975 mg Q6H PRN Administration pain Al Hydroxide/Mg Hydroxide 30 ml 10/21/20 17:40 Magnesium Hydrox/Alum Hydrox 30 Ml Oral.Susp PO Q6H PRN Heartburn/Nausea Benztropine Mesylate 1 mg 10/25/20 18:22 10/27/20 15:08 Benztropine Mesylate 1 Mg Tablet PO 1 mg BID PRN Administration EPS Divalproex Sodium 1,250 mg 10/27/20 21:00 10/30/20 20:03 Divalproex Sodium Er 250 Mg Tab.Er.24h PO 1,250 mg BEDTIME RYAN Administration Haloperidol 5 mg 10/21/20 18:13 10/28/20 15:51 Haloperidol 5 Mg Tablet PO 5 mg BID PRN Administration psychotic agitation Haloperidol 5 mg 10/29/20 21:00 10/30/20 20:03 Haloperidol 5 Mg Tablet PO 5 mg BEDTIME RYAN Administration Ibuprofen 800 mg 10/17/20 11:17 10/21/20 20:28 Ibuprofen 800 Mg Tablet PO 800 mg Q6H PRN Administration pain Levothyroxine Sodium 100 mcg 10/17/20 09:00 10/31/20 06:42 Levothyroxine Sodium 100 Mcg Tablet PO 100 mcg DAILY@0600 RYAN Administration Lorazepam 2 mg 10/20/20 18:20 10/30/20 15:43 Lorazepam 1 Mg Tablet PO 2 mg DAILY PRN Administration anxiety Lurasidone HCl 60 mg 10/29/20 21:00 10/30/20 20:03 Lurasidone Hcl 20 Mg Tablet PO 60 mg BEDTIME RYAN Administration Magnesium Hydroxide 30 ml 10/21/20 17:40 Milk Of Magnesia 30 Ml Oral.Susp PO DAILY PRN Constipation Neomycin/Polymyxin/Hydrocortisone 4 drop 10/28/20 16:30 10/31/20 08:42 Neomycin/Polymyxin/Hc Otic Marisabel Bottle EAR-RIGHT 11/01/20 23:59 4 drop TID RYAN Administration Omeprazole 40 mg 10/17/20 09:00 10/31/20 06:42 Omeprazole 40 Mg Capsule. PO 40 mg BID@0630,1630 RYAN Administration Oxcarbazepine 300 mg 10/24/20 14:00 10/30/20 14:12 Oxcarbazepine 300 Mg Tablet PO 300 mg 1400 RYAN Administration Trazodone HCl 50 mg 10/21/20 17:40 Trazodone Hcl 50 Mg Tablet PO BEDTIME PRN Insomnia Vitamin D 25 mcg 10/30/20 09:00 10/31/20 08:41 Cholecalciferol (Vitamin D3) 25 Mcg Tablet PO 25 mcg DAILY RYAN Administration Allergies Allergies Allergy/AdvReac Type Severity Reaction Status Date / Time Penicillins Allergy Hives Verified 10/13/20 17:15 fluoxetine [From Prozac] AdvReac Unknown Verified 10/13/20 17:15 Assessment & Plan Assessment & Plan (1) Abdominal pain: Status: Acute Code(s): R10.9 - Unspecified abdominal pain (2) Bipolar disorder: Status: Acute Code(s): F31.9 - Bipolar disorder, unspecified (3) Moderate intellectual disability: Status: Acute Code(s): F71 - Moderate intellectual disabilities (4) PTSD (post-traumatic stress disorder): Status: Acute Code(s): F43.10 - Post-traumatic stress disorder, unspecified Assessment and Plan: Plan: 1. Will continue current med regimen, has care team meeting pending Monday to discuss discharge planning and fpc placement. 2. Monitor response to medications. Monitor for safety in the milieu. Discharge on stabilization. Patient seen. Chart reviewed. Discussed with team. 10/31/2020: No changes to primary team treatment plan. Greater than 50% of the session was spent on counseling and/or coordination of care Reason for contiued inpatient stay Substantial Risk for: inability to function and rapid decompensation
[2020-10-31] MEDS: OXcarbazepine 300 MG TABLET PO (14:03)
[2020-10-31] MEDS: LORazepam 1 MG TABLET 2 MG PO (15:45)
[2020-10-31 16:13] LABS: Glucose, Whole Blood 124 mg/dL (60-115)
[2020-10-31] MEDS: Magnesium Hydrox/Alum Hydrox 30 ML ORAL.SUSP PO (16:48)
[2020-10-31 18:00] VITALS: BP 133/89; PULSE 111; TEMP 36.4
[2020-10-31] MEDS: Divalproex Sodium ER 250 MG TAB.ER.24H 1250 MG PO (18:37)
[2020-10-31] MEDS: Lurasidone HCl 20 MG TABLET 60 MG PO (18:37)
[2020-10-31] MEDS: HaloperidoL 5 MG TABLET PO (18:37)
[2020-10-31] MEDS: diphenhydrAMINE HCL 25 MG TABLET 50 MG PO (18:38)
[2020-10-31 21:52] VITALS: BP 128/89; PULSE 100; TEMP 36.4
[2020-11-01 06:00] VITALS: BP 152/58; PULSE 92; RESP 22; TEMP 36; O2SAT 94
[2020-11-01] MEDS: Omeprazole 40 MG CAPSULE.DR PO ×2 (06:01→16:00)
[2020-11-01] MEDS: Levothyroxine Sodium 100 MCG TABLET PO (06:01)
[2020-11-01 06:45] LABS: Glucose, Whole Blood 92 mg/dL (60-115)
[2020-11-01] MEDS: Cholecalciferol (Vitamin D3) 25 MCG TABLET PO (08:05)
[2020-11-01] MEDS: NeoMYCIN/Polymyxin/HC Otic Sol BOTTLE 4 DROP EAR-RIGHT ×3 (08:05→19:54)
--- NOTE | 2020-11-01 12:31 | HO.PSYCHPN ---
Subjective Subjective Date of Service: 11/01/20 Reason For Visit: Bipolar Disorder, SI Interim History: noted events from yesterday. Was threatening staff. Was given Ativan and nighttime medications orally along with Benadryl. Slept in the TV room. Seen in TV room, where his mattress was today. [place]. Reports things are going okay. Unable to explain frustration yesterday. Still looking forward to meeting on Monday. Reports that he wants to live in the [place] area close to his father and not return to his senior living in [place]. He is also aware that this may not be an immediate plan. Medication Compliance: Yes Side effects from medications: No Review of Systems Acute medical concerns: No Review of Systems Review of Systems noncontributory Mental Status Exam Mental Status Exam Narrative: seen in TV room.? Obese. ? poor self-care. Very concrete.? Restricted affect.? No evidence of SI or HI.? No psychosis noted.? Pleasant.? Insight? and judgment consistent with cognition Diagnostics Vital Signs (24Hr): Vital Signs - 24 hr 10/31/20 18:00 10/31/20 21:52 11/01/20 06:00 Temperature 97.6 F 97.5 F 96.8 F Pulse Rate 111 H 100 92 Respiratory Rate 22 H Blood Pressure 133/89 128/89 152/58 H Pulse Oximetry 94 Body Mass Index 54.5 Labs Results: 10/22/20 08:08 10/22/20 08:08 Labs: Laboratory Results - last 48 hr 10/22/20 10/30/20 10/31/20 19:10 16:30 16:10 POC Glucose 144 H 124 H Parvovirus B19 IgG Ab <0.9 Parvovirus B19 IgM Ab <0.9 11/01/20 06:38 POC Glucose 92 Parvovirus B19 IgG Ab Parvovirus B19 IgM Ab Imaging Radiology Impressions: ITS Impressions Chest X-Ray 10/22/20 15:57 IMPRESSION: Unremarkable examination. Abdomen Ultrasound 10/22/20 16:10 IMPRESSION: Limited study with findings consistent with fatty infiltration of the liver and splenomegaly. Pancreas obscured by overlying bowel gas and gallbladder not identified. Ankle X-Ray 10/25/20 19:44 IMPRESSION: No acute osseous abnormality. Medial greater than lateral soft tissue swelling. Medications Medications Current Medications Generic Name Dose Route Start Last Admin Trade Name Freq PRN Reason Stop Dose Admin Acetaminophen 975 mg 10/17/20 10:28 10/29/20 13:37 Acetaminophen 325 Mg Tablet PO 975 mg Q6H PRN Administration pain Al Hydroxide/Mg Hydroxide 30 ml 10/21/20 17:40 10/31/20 16:48 Magnesium Hydrox/Alum Hydrox 30 Ml Oral.Susp PO 30 ml Q6H PRN Administration Heartburn/Nausea Benztropine Mesylate 1 mg 10/25/20 18:22 10/27/20 15:08 Benztropine Mesylate 1 Mg Tablet PO 1 mg BID PRN Administration EPS Divalproex Sodium 1,250 mg 10/27/20 21:00 10/31/20 18:37 Divalproex Sodium Er 250 Mg Tab.Er.24h PO 1,250 mg BEDTIME RYAN Administration Haloperidol 5 mg 10/21/20 18:13 10/28/20 15:51 Haloperidol 5 Mg Tablet PO 5 mg BID PRN Administration psychotic agitation Haloperidol 5 mg 10/29/20 21:00 10/31/20 18:37 Haloperidol 5 Mg Tablet PO 5 mg BEDTIME RYAN Administration Ibuprofen 800 mg 10/17/20 11:17 10/21/20 20:28 Ibuprofen 800 Mg Tablet PO 800 mg Q6H PRN Administration pain Levothyroxine Sodium 100 mcg 10/17/20 09:00 11/01/20 06:01 Levothyroxine Sodium 100 Mcg Tablet PO 100 mcg DAILY@0600 RYAN Administration Lorazepam 2 mg 10/20/20 18:20 10/31/20 15:45 Lorazepam 1 Mg Tablet PO 2 mg DAILY PRN Administration anxiety Lurasidone HCl 60 mg 10/29/20 21:00 10/31/20 18:37 Lurasidone Hcl 20 Mg Tablet PO 60 mg BEDTIME RYAN Administration Magnesium Hydroxide 30 ml 10/21/20 17:40 Milk Of Magnesia 30 Ml Oral.Susp PO DAILY PRN Constipation Neomycin/Polymyxin/Hydrocortisone 4 drop 10/28/20 16:30 11/01/20 08:05 Neomycin/Polymyxin/Hc Otic Marisabel Bottle EAR-RIGHT 11/01/20 23:59 4 drop TID RYAN Administration Omeprazole 40 mg 10/17/20 09:00 11/01/20 06:01 Omeprazole 40 Mg Capsule. PO 40 mg BID@0630,1630 RYNA Administration Oxcarbazepine 300 mg 10/24/20 14:00 10/31/20 14:03 Oxcarbazepine 300 Mg Tablet PO 300 mg 1400 RYAN Administration Trazodone HCl 50 mg 10/21/20 17:40 Trazodone Hcl 50 Mg Tablet PO BEDTIME PRN Insomnia Vitamin D 25 mcg 10/30/20 09:00 11/01/20 08:05 Cholecalciferol (Vitamin D3) 25 Mcg Tablet PO 25 mcg DAILY RYAN Administration Allergies Allergies Allergy/AdvReac Type Severity Reaction Status Date / Time Penicillins Allergy Hives Verified 10/13/20 17:15 fluoxetine [From Prozac] AdvReac Unknown Verified 10/13/20 17:15 Assessment & Plan Assessment & Plan (1) Abdominal pain: Status: Acute Code(s): R10.9 - Unspecified abdominal pain (2) Bipolar disorder: Status: Acute Code(s): F31.9 - Bipolar disorder, unspecified (3) Moderate intellectual disability: Status: Acute Code(s): F71 - Moderate intellectual disabilities (4) PTSD (post-traumatic stress disorder): Status: Acute Code(s): F43.10 - Post-traumatic stress disorder, unspecified Assessment and Plan: Plan: 1. Will continue current med regimen, has care team meeting pending Monday to discuss discharge planning and senior living placement. 2. Monitor response to medications. Monitor for safety in the milieu. Discharge on stabilization. Patient seen. Chart reviewed. Discussed with team. 11/01/2020: No changes to primary team treatment plan. Greater than 50% of the session was spent on counseling and/or coordination of care Reason for contiued inpatient stay Substantial Risk for: harm to others
[2020-11-01] MEDS: OXcarbazepine 300 MG TABLET PO (13:54)
[2020-11-01] MEDS: LORazepam 1 MG TABLET 2 MG PO (16:00)
[2020-11-01 17:01] LABS: Glucose, Whole Blood 158 mg/dL (60-115)
[2020-11-01 19:25] VITALS: BP 143/89; PULSE 125; TEMP 36.7
[2020-11-01] MEDS: Divalproex Sodium ER 250 MG TAB.ER.24H 1250 MG PO (19:51)
[2020-11-01] MEDS: Lurasidone HCl 20 MG TABLET 60 MG PO (19:51)
[2020-11-01] MEDS: HaloperidoL 5 MG TABLET PO (19:52)
[2020-11-02 06:00] VITALS: BP 132/58; PULSE 97; RESP 20; TEMP 36.1; O2SAT 95
[2020-11-02] MEDS: Omeprazole 40 MG CAPSULE.DR PO ×2 (06:06→16:17)
[2020-11-02] MEDS: Levothyroxine Sodium 100 MCG TABLET PO (06:06)
[2020-11-02 06:25] LABS: Glucose, Whole Blood 115 mg/dL (60-115)
[2020-11-02 07:54] LABS: Alanine Aminotransferase 79 U/L (0-40); Albumin Level 3.5 g/dL (3.5-5.0); Alkaline Phosphatase 80 U/L (39-117); Anion Gap 12 (12-20); Aspartate Amino Transferase 29 U/L (5-37); Bilirubin Total 0.2 mg/dL (0.0-1.0); Blood Urea Nitrogen 17 mg/dL (9-16); Calcium 8.5 mg/dL (8.4-10.2); Carbon Dioxide 26 mmol/L (22-29); Chloride 106 mmol/L (96-108); Creatinine Clr Calc Pharmacy 207.3; Estimated Glomerular Filt Rate > 60; Glucose Random 112 mg/dL (60-115); Potassium 4.1 mmol/L (3.3-5.1); Sodium 140 mmol/L (135-145)
[2020-11-02 08:07] LABS: Valproate 47.3 mcg/mL (50.0-100.0)
[2020-11-02] MEDS: Cholecalciferol (Vitamin D3) 25 MCG TABLET PO (08:48)
--- NOTE | 2020-11-02 12:33 | HO.PSYCHPN ---
Subjective Subjective Date of Service: 11/02/20 Reason For Visit: Bipolar Disorder, SI Interim History: Had some threats towards staff yesterday. Does have some difficulty with another patient on the unit and therefore slept in the TV room. . [place]. Reports things are going okay. Unable to explain frustration yesterday. Still looking forward to meeting on Monday. Reports that he wants to live in the [place] area close to his father and not return to his senior care in [place]. He is also aware that this may not be an immediate plan. Medication Compliance: Yes Side effects from medications: No Review of Systems Acute medical concerns: No Review of Systems Review of Systems noncontributory Mental Status Exam Mental Status Exam Narrative: seen in TV room.? Obese. ? poor self-care. Very concrete.? Restricted affect.? No evidence of SI or HI.? No psychosis noted.? Pleasant.? Insight? and judgment consistent with cognition Diagnostics Vital Signs (24Hr): Vital Signs - 24 hr 11/01/20 19:25 11/02/20 06:00 Temperature 98.0 F 97.0 F Pulse Rate 125 H 97 Respiratory Rate 20 Blood Pressure 143/89 H 132/58 L Pulse Oximetry 95 Body Mass Index 54.5 Labs Results: 10/22/20 08:08 11/02/20 07:17 Labs: Laboratory Results - last 48 hr 10/31/20 11/01/20 11/01/20 16:10 06:38 16:49 Sodium Potassium Chloride Carbon Dioxide Anion Gap BUN Creatinine Estim Creat Clear Calc Estimated GFR POC Glucose 124 H 92 158 H Random Glucose Calcium Total Bilirubin AST ALT Alkaline Phosphatase Total Protein Albumin Valproic Acid 11/02/20 11/02/20 11/02/20 06:12 07:17 07:17 Sodium 140 Potassium 4.1 Chloride 106 Carbon Dioxide 26 Anion Gap 12 BUN 17 H Creatinine 0.71 Estim Creat Clear Calc 207.3 Estimated GFR > 60 POC Glucose 115 Random Glucose 112 Calcium 8.5 Total Bilirubin 0.2 AST 29 ALT 79 H Alkaline Phosphatase 80 Total Protein 6.0 L Albumin 3.5 Valproic Acid 47.3 L Imaging Radiology Impressions: ITS Impressions Chest X-Ray 10/22/20 15:57 IMPRESSION: Unremarkable examination. Abdomen Ultrasound 10/22/20 16:10 IMPRESSION: Limited study with findings consistent with fatty infiltration of the liver and splenomegaly. Pancreas obscured by overlying bowel gas and gallbladder not identified. Ankle X-Ray 10/25/20 19:44 IMPRESSION: No acute osseous abnormality. Medial greater than lateral soft tissue swelling. Medications Medications Current Medications Generic Name Dose Route Start Last Admin Trade Name Freq PRN Reason Stop Dose Admin Acetaminophen 975 mg 10/17/20 10:28 10/29/20 13:37 Acetaminophen 325 Mg Tablet PO 975 mg Q6H PRN Administration pain Al Hydroxide/Mg Hydroxide 30 ml 10/21/20 17:40 10/31/20 16:48 Magnesium Hydrox/Alum Hydrox 30 Ml Oral.Susp PO 30 ml Q6H PRN Administration Heartburn/Nausea Benztropine Mesylate 1 mg 10/25/20 18:22 10/27/20 15:08 Benztropine Mesylate 1 Mg Tablet PO 1 mg BID PRN Administration EPS Divalproex Sodium 1,250 mg 10/27/20 21:00 11/01/20 19:51 Divalproex Sodium Er 250 Mg Tab.Er.24h PO 1,250 mg BEDTIME RYAN Administration Haloperidol 5 mg 10/21/20 18:13 10/28/20 15:51 Haloperidol 5 Mg Tablet PO 5 mg BID PRN Administration psychotic agitation Haloperidol 5 mg 10/29/20 21:00 11/01/20 19:52 Haloperidol 5 Mg Tablet PO 5 mg BEDTIME RYAN Administration Ibuprofen 800 mg 10/17/20 11:17 10/21/20 20:28 Ibuprofen 800 Mg Tablet PO 800 mg Q6H PRN Administration pain Levothyroxine Sodium 100 mcg 10/17/20 09:00 11/02/20 06:06 Levothyroxine Sodium 100 Mcg Tablet PO 100 mcg DAILY@0600 RYAN Administration Lorazepam 2 mg 10/20/20 18:20 11/01/20 16:00 Lorazepam 1 Mg Tablet PO 2 mg DAILY PRN Administration anxiety Lurasidone HCl 60 mg 10/29/20 21:00 11/01/20 19:51 Lurasidone Hcl 20 Mg Tablet PO 60 mg BEDTIME RYAN Administration Magnesium Hydroxide 30 ml 10/21/20 17:40 Milk Of Magnesia 30 Ml Oral.Susp PO DAILY PRN Constipation Omeprazole 40 mg 10/17/20 09:00 11/02/20 06:06 Omeprazole 40 Mg Capsule.Dr PO 40 mg BID@0630,1630 RYAN Administration Oxcarbazepine 300 mg 10/24/20 14:00 11/01/20 13:54 Oxcarbazepine 300 Mg Tablet PO 300 mg 1400 RYAN Administration Trazodone HCl 50 mg 10/21/20 17:40 Trazodone Hcl 50 Mg Tablet PO BEDTIME PRN Insomnia Vitamin D 25 mcg 10/30/20 09:00 11/02/20 08:48 Cholecalciferol (Vitamin D3) 25 Mcg Tablet PO 25 mcg DAILY RYAN Administration Allergies Allergies Allergy/AdvReac Type Severity Reaction Status Date / Time Penicillins Allergy Hives Verified 10/13/20 17:15 fluoxetine [From Prozac] AdvReac Unknown Verified 10/13/20 17:15 Assessment & Plan Assessment & Plan (1) Abdominal pain: Status: Acute Code(s): R10.9 - Unspecified abdominal pain (2) Bipolar disorder: Status: Acute Code(s): F31.9 - Bipolar disorder, unspecified (3) Moderate intellectual disability: Status: Acute Code(s): F71 - Moderate intellectual disabilities (4) PTSD (post-traumatic stress disorder): Status: Acute Code(s): F43.10 - Post-traumatic stress disorder, unspecified Assessment and Plan: Plan: 1. Will continue current med regimen, has care team meeting pending Monday to discuss discharge planning and senior care placement. 2. Monitor response to medications. Monitor for safety in the milieu. Discharge on stabilization. Patient seen. Chart reviewed. Discussed with team. 11/02/2020: No changes to primary team treatment plan. Greater than 50% of the session was spent on counseling and/or coordination of care Reason for contiued inpatient stay Substantial Risk for: inability to function
[2020-11-02] MEDS: OXcarbazepine 300 MG TABLET PO (13:31)
[2020-11-02] MEDS: Acetaminophen 325 MG TABLET 975 MG PO (14:25)
[2020-11-02] MEDS: LORazepam 1 MG TABLET 2 MG PO (15:45)
[2020-11-02 17:08] VITALS: BP 132/70; PULSE 103; TEMP 36.6
[2020-11-02] MEDS: NeoMYCIN/Polymyxin/HC Otic Sol BOTTLE 4 DROP EAR-RIGHT (20:15)
[2020-11-02] MEDS: Divalproex Sodium ER 250 MG TAB.ER.24H 1250 MG PO (20:15)
[2020-11-02] MEDS: Lurasidone HCl 20 MG TABLET 60 MG PO (20:15)
[2020-11-02] MEDS: HaloperidoL 5 MG TABLET PO (20:15)
[2020-11-02 21:30] LABS: Glucose, Whole Blood 120 mg/dL (60-115)
[2020-11-02] MEDS: Ondansetron ODT 4 MG TAB.RAPDIS TRANSLINGU (21:59)
--- NOTE | 2020-11-03 08:00 | ECG_ITS ---
Test Reason : MED TAPERING Blood Pressure : / mmHG Vent. Rate : 093 BPM Atrial Rate : 093 BPM P-R Int : 162 ms QRS Dur : 102 ms QT Int : 350 ms P-R-T Axes : 027 000 029 degrees QTc Int : 435 ms Normal sinus rhythm Normal ECG When compared with ECG of 22-OCT-2020 11:58, No significant change was found Referred By: Alyssa Carbajal Electronically Signed By:CODY COOPER
[2020-11-03] MEDS: Omeprazole 40 MG CAPSULE.DR PO ×2 (08:17→16:50)
[2020-11-03] MEDS: Acetaminophen 325 MG TABLET 975 MG PO ×2 (08:18→14:39)
[2020-11-03] MEDS: Levothyroxine Sodium 100 MCG TABLET PO (08:18)
[2020-11-03] MEDS: Cholecalciferol (Vitamin D3) 25 MCG TABLET PO (08:18)
[2020-11-03] MEDS: NeoMYCIN/Polymyxin/HC Otic Sol BOTTLE 4 DROP EAR-RIGHT ×3 (08:20→20:34)
[2020-11-03] MEDS: Ibuprofen 800 MG TABLET PO (10:07)
[2020-11-03 11:25] VITALS: BP 124/65; PULSE 96; RESP 16; TEMP 36.3; O2SAT 94
[2020-11-03] MEDS: OXcarbazepine 150 MG TABLET PO (14:39)
[2020-11-03 15:29] LABS: COVID-19 Test Negative (Negative); IDNOW Serial# 9DD0AD1C
[2020-11-03] MEDS: Milk of Magnesia 30 ML ORAL.SUSP PO (16:50)
[2020-11-03 17:29] LABS: Glucose, Whole Blood 133 mg/dL (60-115)
[2020-11-03] MEDS: Divalproex Sodium ER 250 MG TAB.ER.24H 1250 MG PO (20:30)
[2020-11-03] MEDS: Lurasidone HCl 20 MG TABLET 60 MG PO (20:30)
[2020-11-03] MEDS: HaloperidoL 5 MG TABLET PO (20:30)
[2020-11-03] MEDS: LORazepam 1 MG TABLET 2 MG PO (20:31)
[2020-11-04 08:31] LABS: MANUAL DIFF FLAG NO
[2020-11-04 08:35] LABS: Eosinophils Absolute Auto 0.1 X10*3/uL (0.0-0.4); Eosinophils Percent Auto 1.3 % (0-4); Hematocrit 39.8 % (42-52); Hemoglobin 13.3 g/dl (14.0-18.0); Imm Gran Abs Auto 0.03 X10*3/uL (0.00-0.03); Imm Gran Pct Auto 0.7 % (0.0-0.4); Lymphocytes Absolute Auto 1.6 X10*3/uL (1.2-4.9); Lymphocytes Percent Auto 35.1 % (20-40); Mean Corpuscular HGB Conc 33.4 g/dl (31.0-36.0); Mean Corpuscular Hemoglobin 29.6 pg (27.0-33.0); Mean Corpuscular Volume 88.4 fL (80-98); Mean Platelet Volume 11.1 fL (9.4-12.4); Monocytes Absolute Auto 0.4 X10*3/uL (0.1-1.2); Monocytes Percent Auto 8.8 % (2-11); Neutrophils Absolute Auto 2.5 X10*3/uL (2.0-8.3); Neutrophils Percent Auto 54.1 % (45-73); Platelet Count 127 X10*3/uL (160-400); Red Cell Distribution Width 13.1 % (11.0-16.0); White Blood Count 4.6 X10*3/uL (4.8-10.8)
[2020-11-04] MEDS: Levothyroxine Sodium 100 MCG TABLET PO (08:46)
[2020-11-04] MEDS: Omeprazole 40 MG CAPSULE.DR PO (08:46)
[2020-11-04] MEDS: Cholecalciferol (Vitamin D3) 25 MCG TABLET PO (08:46)
--- NOTE | 2020-11-04 08:47 | HO.PSYCHPN ---
Subjective Subjective Date of Service: 11/04/20 Reason For Visit: Bipolar Disorder, SI Medical Problems Affecting Mental Status: Yes (constipation, headache) Interim History: Tanmay reports headache with poor appetite and feeling sick to my stomach KUB completed which shows constipation-MOM given. Pt reports he is excited to be discharged on 11/04 to [facility] as it is a step closer to his return to [place]. VS 132/70. EKG WNL QTc 435. Medication Compliance: Yes Side effects from medications: No Attending Groups: Yes Review of Systems Acute medical concerns: Yes Headache, upset stomach, constipation. Medical Review of Systems: changed Review of Systems: EKG WNL KUB-constipation Review of Systems Constitutional: Reports headache(s) and Reports poor appetite Reports headache(s) Gastrointestinal: Reports constipation Reports headache(s) Psychiatric: Reports change in appetite Mental Status Exam Mental Status Exam Patient Appearance: Disheveled Patient Orientation: Person, Place, Time and Situation Level of Consciousness: Alert Patient Behavior: Talkative and Cooperative Mood Description: Flat Affect Description: Flat Patient Cognition Impaired: No Ability to Follow Directions: Good Speech Pattern: Spontaneous Speech Memory Description: Intact Hallucinations: None Delusions: Not Present Thought Content: positive for Suicidal Ideation (denies plan, intent, ideation) Depressive Symptoms: Thoughts of /Suicide (denies SI, plan, intent, ideation) Judgement: Fair Diagnostics Vital Signs (24Hr): Vital Signs - 24 hr 11/03/20 11:25 Temperature 97.4 F Pulse Rate 96 Respiratory Rate 16 Blood Pressure 124/65 Pulse Oximetry 94 Body Mass Index 54.5 Labs Results: 11/04/20 08:19 11/04/20 08:19 Labs: Laboratory Results - last 48 hr 11/02/20 11/03/20 11/03/20 21:27 14:53 17:26 WBC RBC Hgb Hct MCV MCH MCHC RDW Plt Count MPV Immature Gran % (Auto) Neut % (Auto) Lymph % (Auto) [place] % (Auto) Eos % (Auto) Baso % (Auto) Lymph # (Auto) [place] # (Auto) Eos # (Auto) Baso # (Auto) Abs Immat Gran (auto) Absolute Neuts (auto) Absolute Nucleated RBC Nucleated RBC % (auto) POC Glucose 120 H 133 H COVID-19 ([place]) Negative COVID-19 Clin Com See Note 11/04/20 08:19 WBC 4.6 L RBC 4.50 L Hgb 13.3 L Hct 39.8 L MCV 88.4 MCH 29.6 MCHC 33.4 RDW 13.1 Plt Count 127 L MPV 11.1 Immature Gran % (Auto) 0.7 H Neut % (Auto) 54.1 Lymph % (Auto) 35.1 [place] % (Auto) 8.8 Eos % (Auto) 1.3 Baso % (Auto) 0.0 Lymph # (Auto) 1.6 [place] # (Auto) 0.4 Eos # (Auto) 0.1 Baso # (Auto) 0.0 Abs Immat Gran (auto) 0.03 Absolute Neuts (auto) 2.5 Absolute Nucleated RBC 0.000 Nucleated RBC % (auto) 0.0 POC Glucose COVID-19 ([place]) COVID-19 Clin Com Imaging Radiology Impressions: ITS Impressions Chest X-Ray 10/22/20 15:57 IMPRESSION: Unremarkable examination. Abdomen Ultrasound 10/22/20 16:10 IMPRESSION: Limited study with findings consistent with fatty infiltration of the liver and splenomegaly. Pancreas obscured by overlying bowel gas and gallbladder not identified. Ankle X-Ray 10/25/20 19:44 IMPRESSION: No acute osseous abnormality. Medial greater than lateral soft tissue swelling. KUB X-Ray 11/03/20 14:35 IMPRESSION: Constipation. Medications Medications Current Medications Generic Name Dose Route Start Last Admin Trade Name Freq PRN Reason Stop Dose Admin Acetaminophen 975 mg 10/17/20 10:28 11/03/20 14:39 Acetaminophen 325 Mg Tablet PO 975 mg Q6H PRN Administration pain Al Hydroxide/Mg Hydroxide 30 ml 10/21/20 17:40 10/31/20 16:48 Magnesium Hydrox/Alum Hydrox 30 Ml Oral.Susp PO 30 ml Q6H PRN Administration Heartburn/Nausea Benztropine Mesylate 1 mg 10/25/20 18:22 10/27/20 15:08 Benztropine Mesylate 1 Mg Tablet PO 1 mg BID PRN Administration EPS Divalproex Sodium 1,250 mg 10/27/20 21:00 11/03/20 20:30 Divalproex Sodium Er 250 Mg Tab.Er.24h PO 1,250 mg BEDTIME RYAN Administration Haloperidol 5 mg 10/21/20 18:13 10/28/20 15:51 Haloperidol 5 Mg Tablet PO 5 mg BID PRN Administration psychotic agitation Haloperidol 5 mg 10/29/20 21:00 11/03/20 20:30 Haloperidol 5 Mg Tablet PO 5 mg BEDTIME RYAN Administration Ibuprofen 800 mg 10/17/20 11:17 11/03/20 10:07 Ibuprofen 800 Mg Tablet PO 800 mg Q6H PRN Administration pain Levothyroxine Sodium 100 mcg 10/17/20 09:00 11/03/20 08:18 Levothyroxine Sodium 100 Mcg Tablet PO 100 mcg DAILY@0600 RYAN Administration Lorazepam 2 mg 10/20/20 18:20 11/03/20 20:31 Lorazepam 1 Mg Tablet PO 2 mg DAILY PRN Administration anxiety Lurasidone HCl 60 mg 10/29/20 21:00 11/03/20 20:30 Lurasidone Hcl 20 Mg Tablet PO 60 mg BEDTIME RYAN Administration Magnesium Hydroxide 30 ml 10/21/20 17:40 11/03/20 16:50 Milk Of Magnesia 30 Ml Oral.Susp PO 30 ml DAILY PRN Administration Constipation Neomycin/Polymyxin/Hydrocortisone 4 drop 11/02/20 15:45 11/03/20 20:34 Neomycin/Polymyxin/Hc Otic Marisabel Bottle EAR-RIGHT 11/05/20 15:44 4 drop TID RYAN Administration Omeprazole 40 mg 10/17/20 09:00 11/03/20 16:50 Omeprazole 40 Mg Capsule.Dr PO 40 mg BID@0630,1630 RYAN Administration Ondansetron HCl 4 mg 11/02/20 21:43 11/02/20 21:59 Ondansetron Odt 4 Mg Tab.Rapdis TRANSLINGU 4 mg Q6H PRN Administration Nausea Oxcarbazepine 150 mg 11/03/20 14:00 11/03/20 14:39 Oxcarbazepine 150 Mg Tablet PO 150 mg 1400 RYAN Administration Trazodone HCl 50 mg 10/21/20 17:40 Trazodone Hcl 50 Mg Tablet PO BEDTIME PRN Insomnia Vitamin D 25 mcg 10/30/20 09:00 11/03/20 08:18 Cholecalciferol (Vitamin D3) 25 Mcg Tablet PO 25 mcg DAILY RYAN Administration Allergies Allergies Allergy/AdvReac Type Severity Reaction Status Date / Time Penicillins Allergy Hives Verified 10/13/20 17:15 fluoxetine [From Prozac] AdvReac Unknown Verified 10/13/20 17:15 Assessment & Plan Assessment & Plan (1) Abdominal pain: Status: Acute Code(s): R10.9 - Unspecified abdominal pain (2) Bipolar disorder: Status: Acute Code(s): F31.9 - Bipolar disorder, unspecified (3) Moderate intellectual disability: Status: Acute Code(s): F71 - Moderate intellectual disabilities (4) PTSD (post-traumatic stress disorder): Status: Acute Code(s): F43.10 - Post-traumatic stress disorder, unspecified Assessment and Plan: Plan: -Continue current regime. -KUB shows constipation-will offer MOM -Pt reports headache-will monitor -Labs 11/04 for re-eval. -Tentative discharge on 11/04. Will monitor sx. -Rey for safety today Greater than 50% of the session was spent on counseling and/or coordination of care Patient educated on: medication risk/benefits and therapeutic strategies Informed Consent: further education needed Reason for contiued inpatient stay Substantial Risk for: harm to self, inability to function, rapid decompensation and med/psych decompensation
[2020-11-04] MEDS: NeoMYCIN/Polymyxin/HC Otic Sol BOTTLE 4 DROP EAR-RIGHT (08:48)
[2020-11-04 08:57] LABS: Alanine Aminotransferase 76 U/L (0-40); Albumin Level 3.6 g/dL (3.5-5.0); Alkaline Phosphatase 67 U/L (39-117); Anion Gap 9 (12-20); Aspartate Amino Transferase 25 U/L (5-37); Bilirubin Total 0.4 mg/dL (0.0-1.0); Blood Urea Nitrogen 16 mg/dL (9-16); Calcium 8.7 mg/dL (8.4-10.2); Carbon Dioxide 29 mmol/L (22-29); Chloride 106 mmol/L (96-108); Creatinine Clr Calc Pharmacy 210.3; Estimated Glomerular Filt Rate > 60; Glucose Random 99 mg/dL (60-115); Potassium 4.4 mmol/L (3.3-5.1); Sodium 140 mmol/L (135-145); Total Protein 6.2 g/dL (6.5-8.0)
[2020-11-04 09:05] LABS: Valproate 47.6 mcg/mL (50.0-100.0)
[2020-11-04 09:46] VITALS: BP 104/58; PULSE 86; RESP 16
--- NOTE | 2020-11-17 14:17 | P.DS_ITS ---
DS: Providers Provider Date of Service: 11/04/20 Date of admission: 10/21/20 17:40 Date of discharge: 11/04/20 Primary care physician: Unknown Physician Admitting clinician: Alyssa Carbajal Attending physician on admission: Hernesto Stewart Consults: 10/22/20 12:35 Consult to Hospitalist Routine Consulting Provider: Hospitalist Reason For Exam: Pt reports significant left lower quadrant pain Attending physician on discharge: Hernesto Stewart Discharging clinician: Alyssa Carbajal DS: Diagnosis Discharge Diagnosis (1) Abdominal pain: Status: Resolved (2) Bipolar disorder: Status: Acute (3) Moderate intellectual disability: Status: Acute (4) PTSD (post-traumatic stress disorder): Status: Acute DS: Medications Discharge Medications Home Medications: Previous Rx's Medication Instructions Recorded cholecalciferol (vitamin D3) 25 25 mcg PO DAILY #30 tab 11/03/20 mcg (1,000 unit) tablet divalproex 250 mg tablet,extended 1,250 mg PO BEDTIME #150 tab 11/03/20 release 24 hr haloperidol 5 mg tablet 5 mg PO BEDTIME #30 tab 11/03/20 haloperidol 5 mg tablet 5 mg PO BID PRN #60 tab 11/03/20 levothyroxine 100 mcg tablet 100 mcg PO DAILY@0600 #30 tab 11/03/20 (Synthroid) lorazepam 1 mg tablet 1 mg PO BID PRN #60 tab 11/03/20 lurasidone 20 mg tablet (Latuda) 60 mg PO BEDTIME #90 tab 11/03/20 [id number] 3.5 4 drp OTIC (EAR) LEFT Q8H 10 Days 11/03/20 mg/mL-10,000 unit/mL-1 % ear #10 ml solution omeprazole 40 mg capsule,delayed 40 mg PO BID@0630,1630 #60 cap 11/03/20 release trazodone 50 mg tablet 50 mg PO BEDTIME PRN #30 tab 11/03/20 acetaminophen 325 mg capsule 650 mg PO QID PRN #90 cap 11/04/20 (Tylenol) docusate sodium 100 mg capsule 100 mg PO BID #14 cap 11/04/20 (Colace) magnesium hydroxide 400 mg/5 mL 5 ml PO DAILY PRN #3000 ml 11/04/20 oral suspension (Milk of Magnesia) multivitamin 1 tab PO DAILY #30 tab 11/04/20 Mental Status Exam Mental Status Exam Patient Appearance: Disheveled Patient Orientation: Person, Place, Time and Situation Level of Consciousness: Alert Patient Behavior: Talkative and Cooperative Mood Description: Flat Affect Description: Flat Patient Cognition Impaired: No Ability to Follow Directions: Good Speech Pattern: Spontaneous Speech Memory Description: Intact Hallucinations: None Delusions: Not Present Thought Content: positive for Suicidal Ideation (denies plan, intent, ideation) Depressive Symptoms: Thoughts of /Suicide (denies SI, plan, intent, ideation) Judgement: Fair Data Imaging Diagnostic Imaging Impressions Chest X-Ray 10/22/20 15:57 IMPRESSION: Unremarkable examination. Abdomen Ultrasound 10/22/20 16:10 IMPRESSION: Limited study with findings consistent with fatty infiltration of the liver and splenomegaly. Pancreas obscured by overlying bowel gas and gallbladder not identified. Ankle X-Ray 10/25/20 19:44 IMPRESSION: No acute osseous abnormality. Medial greater than lateral soft tissue swelling. KUB X-Ray 11/03/20 14:35 IMPRESSION: Constipation. DS: Summary Hospital Course Hospital Course: 30 yo male with mild intellectual disability, bipolar disorder, PTSD sent from a local [facility] respite for sx of aggression, violence, verbalization of SI with a plan to eat poisonous berries and reported command auditory perceptual alterations to kill himself so he can be with his mother and uncle. Upon admission, pt was able to contract for safety, stating that he was aware his mother and uncle would be upset if he suicided. He did however, endorse missing them. Pt worked with the nursing and social service teams on symptoms and behaviors. It was found that later afternoons were difficult and pt attempted to push through the door to elope, was aggressive, agitated and violent during those times with physical and verbal boundary issues. A behavioral plan was created by the nursing team for Tanmay and he agreed to follow this plan. It was effective. Medications were titrated and as his admission continued Tanmay was consistent in asking to return to his residential program in [place]. Medications were discussed with his out patient psychiatrist, Dr. Moore, who suggested a Latuda trial which was initiated in cross-titration. Tanmay was evaluated by the respite program and a plan was made to have him attend the respite program in [place] in preparation for a return to his residence in [place], [place] and his out pt team. Time spent discussing smoking cessation with patient: 3 to 10 minutes Status at Discharge Cognitive/behavioral status at discharge: Alert, oriented, non-suicidal, non-psychotic, affect and mood constricted, in appropriate behavioral control. Functional status at discharge: independent ambulation Overall status at discharge: patient is progressing back to baseline Time Spent with Patient Time attestation: Total time spent providing and/or coordinating discharge services: 60 Time spent: Greater than 30 minutes Discharge Plan Discharge Patient Disposition: Xfer to Respite Facility Discharge Diagnosis: Moderate Intellectual Disability Bipolar Disorder PTSD Hypothyroidism GERD Referrals: NABEEL CURRAN [Other] - 1 Week (DR. PAIGE WILL CALL INTERMEDIATE FOR FOLLOW-UP APPOINTMENT.) Discharge Medications: New haloperidol 5 mg Tablet 5 mg PO BEDTIME Qty: 30 RF: 0 haloperidol 5 mg Tablet 5 mg PO BID PRN (Reason: psychotic agitation) Qty: 60 RF: 0 divalproex 250 mg Tablet Extended Release 24 Hr 1,250 mg PO BEDTIME Qty: 150 RF: 0 Latuda 20 mg Tablet 60 mg PO BEDTIME Qty: 90 RF: 0 trazodone 50 mg Tablet 50 mg PO BEDTIME PRN (Reason: Insomnia) Qty: 30 RF: 0 omeprazole 40 mg Capsule,Delayed Release(Dr/Ec) 40 mg PO BID@0630,1630 Qty: 60 RF: 0 levothyroxine [Synthroid] 100 mcg Tablet 100 mcg PO DAILY@0600 Qty: 30 RF: 0 cholecalciferol (vitamin D3) 25 mcg (1,000 unit) Tablet 25 mcg PO DAILY Qty: 30 RF: 0 lorazepam 1 mg tablet 1 mg PO BID PRN (Reason: agitation) Qty: 60 RF: 0 docusate sodium [Colace] 100 mg capsule 100 mg PO BID Qty: 14 RF: 0 magnesium hydroxide [Milk of Magnesia] 400 mg/5 mL suspension 5 ml PO DAILY PRN (Reason: constipation) Qty: 3000 RF: 0 acetaminophen [Tylenol] 325 mg capsule 650 mg PO QID PRN (Reason: pain (scale score 1-3)) Qty: 90 RF: 0 multivitamin Tablet 1 tab PO DAILY Qty: 30 RF: 0 Continued [id number]-[id number]-ZV 3.5-10,000-1 mg/mL-unit/mL-% solution 4 p otic (ear) left Q8H 10 Days Qty: 10 RF: 0 Discontinued oxcarbazepine 150 mg tablet 1 tab PO BID RF: 0 omeprazole 40 mg capsule,delayed release(DR/EC) 1 cap PO BID RF: 0 levothyroxine 100 mcg tablet 1 tab PO DAILY RF: 0 divalproex 500 mg tablet extended release 24 hr 2 tab PO BEDTIME RF: 0 haloperidol 10 mg tablet 15 mg PO BEDTIME RF: 0 amoxicillin-pot clavulanate [Augmentin] 875-125 mg tablet 1 tab PO BID Qty: 14 RF: 0 Discharge Orders: Discharge Order (Routine); Ordered 11/04/20 Ordered By: Alyssa Carbajal Diet: advance to usual diet Activity on Discharge: As tolerated Stand Alone Forms: Patient Portal Discharge page, Community Support Care Plan Goals: Mood Stability Absence of psychotic thought content and process Absence of suicidal ideation Health Concerns: Bipolar Disorder PTSD Hypothyroidism Otitis Externa Plan of Treatment: Transfer to residential program Attend appointments as scheduled Take medications as directed Follow up with labs in 4 weeks with your out patient team Assessment: Alert, oriented, denies headache. Reports some relief from constipation. Denies SI, HI Denies perceptual alterations Pleased with discharge plan. Discharge Date/Time: 11/04/20 11:45
== END 2020-11-04 11:45 | DRG 885 ==
LOC: HO.ED 22:40 → HO.PM5 10-21 17:43
PROVIDERS: Emergency Medicine; Physician Assistant Medical; Admitting Provider Clinical Nurse Specialist Psychiatric/Mental Health, Adult; Emergency Provider Emergency Medicine; Visit Provider Clinical Nurse Specialist Psychiatric/Mental Health, Adult
DX: F31.9 Bipolar disorder, unspecified (principal); R45.851 Suicidal ideations; Z68.44 Body mass index [BMI] 60.0-69.9, adult; H66.92 Otitis media, unspecified, left ear; H66.91 Otitis media, unspecified, right ear; F71 Moderate intellectual disabilities; F43.10 Post-traumatic stress disorder, unspecified; E66.01 Morbid (severe) obesity due to excess calories; Z20.822 Contact with and (suspected) exposure to COVID-19; Z88.0 Allergy status to penicillin; Z79.899 Other long term (current) drug therapy
CPT/HCPCS: 36415; 71046; 73600; 74018; 76700; 80053; 80061; 80164; 80307; 82077; 82607; 82746; 82947; 83036; 83735; 84439; 84443; 85025; 86747; 87497; 87635; 87798; 93005; 99285; Q0163